=== PATIENT | male | born 1960 | race African-American/Black ===

== ENCOUNTER 2016-08-29 20:12 | Emergency (ER) | payer BC ==
[2016-08-29 20:25] VITALS: BP 146/76; PULSE 79; TEMP 98.1; BMI 26.8
--- NOTE | 2016-08-29 21:27 | PDOC ---
History of Present Illness - General History Source: Patient, Old Records Exam Limitations: No Limitations - History of Present Illness Initial Comments: 08/29/16 21:45 CHIEF COMPLAINT: Wound over the right great toe HISTORY OF PRESENT ILLNESS: The patient is a 56 year old male, with a significant past medical history of diabetes (on Metformin), who presents to the emergency department with a wound over the right great toe for the past 2 days. Two days ago, the patient reports that he wore a new pair of shoes for the first time and noticed an abrasion over the right great toe after taking his sock and shoe off at the end of the day. The patient reports that his partner helped him clean and dress the wound. The patient denies any redness around the wound but does report some drainage, prompting him to the come to the ED for further evaluation. The patient denies fever or chills. The patient reports that his sugars have been around 250 but reports that he has been compliant with his Metformin. PCP: Dr. Tylor Hanh ([facility]) REVIEW OF SYSTEMS: CONSTITUTIONAL: Absent: fever, chills, diaphoresis, generalized weakness, malaise, loss of appetite HEENT: Absent: rhinorrhea, nasal congestion, throat pain, throat swelling, difficulty swallowing, mouth swelling, ear pain, eye pain, visual Changes CARDIOVASCULAR: Absent: chest pain, syncope, palpitations, irregular heart rate, lightheadedness , peripheral edema RESPIRATORY: Absent: cough, shortness of breath, dyspnea with exertion, orthopnea, wheezing, stridor, hemoptysis GASTROINTESTINAL: Absent: abdominal pain, abdominal distension, nausea, vomiting, diarrhea, constipation, melena, hematochezia GENITOURINARY: Absent: dysuria, frequency, urgency, hesitancy, hematuria, flank pain, genital pain MUSCULOSKELETAL: Absent: myalgia, arthralgia, joint swelling SKIN: Present: +Wound over the right great toe with drainage Absent: rash, itching, pallor HEMATOLOGIC/IMMUNOLOGIC: Absent: easy bleeding, easy bruising, lymphadenopathy, frequent infections ENDOCRINE: Absent: unexplained weight gain, unexplained weight loss, heat intolerance, cold intolerance NEUROLOGIC: Absent: headache, focal weakness or paresthesias, dizziness, unsteady gait, seizure, mental status changes, bladder or bowel incontinence PSYCHIATRIC: Absent: anxiety, depression, suicidal or homicidal ideation, hallucinations. PHYSICAL EXAM: GENERAL: Well developed, well nourished. Awake and alert. No acute distress. HEENT: Normocephalic, atraumatic. PERRLA, EOMI. No conjunctival pallor. Sclera are non-icteric. Moist mucous membranes. Oropharynx is clear. NECK: Supple. Full ROM. No JVD. Carotid pulses 2+ and symmetric, without bruits. No thyromegaly. No lymphadenopathy. CARDIOVASCULAR: Regular rate and rhythm. No murmurs, rubs, or gallops. Distal pulses are 2+ and symmetric. PULMONARY: No evidence of respiratory distress. Lungs clear to auscultation bilaterally. No wheezing, rales or rhonchi. ABDOMINAL: Soft. Non-tender. Non-distended. No rebound or guarding. No organomegaly. Normoactive bowel sounds. MUSCULOSKELETAL: Normal range of motion at all joints. No bony deformities or tenderness. No CVA tenderness. EXTREMITIES: No cyanosis. No clubbing. No edema. No calf tenderness. SKIN: Right great toe, 4 x 3 cm open erosion with some scant purulent drainage. No surrounding erythema or lymphangitic streaking. Warm and dry. Normal capillary refill. No rashes. No jaundice. NEUROLOGICAL: Alert, awake, appropriate. Cranial nerves 2-12 intact. No deficits to light touch and temperature in face, upper extremities and lower extremities. No motor deficits in the in face, upper extremities and lower extremities. Normoreflexic in the upper and lower extremities. Normal speech. Toes are downgoing bilaterally. Gait is normal without ataxia. PSYCHIATRIC: Cooperative. Good eye contact. Appropriate mood and affect. <Cordelia Rolon - Last Filed: 08/29/16 21:51> - General History Source: Patient Exam Limitations: No Limitations - History of Present Illness Initial Comments: 08/29/16 21:27 <Zahira Foss - Last Filed: 08/29/16 23:02> - General Chief Complaint: Wound Stated Complaint: INFECTION Time Seen by Provider: 08/29/16 21:13 Past History <Cordelia Rolon - Last Filed: 08/29/16 21:51> - Past Medical History Diabetes: Yes (niddm) HTN: Yes Suicide Attempt (Hx): No - Psycho/Social/Smoking Cessation Hx Anxiety: No Suicidal Ideation: No Smoking Status: Yes Smoking History: Never smoked Number of Cigarettes Smoked Daily: 0 If you are a former smoker, when did you quit?: 2011 Hx Alcohol Use: No Drug/Substance Use Hx: No Substance Use Type: None <Zahira Foss - Last Filed: 08/29/16 23:02> - Past Medical History Allergies/Adverse Reactions: Allergies Allergy/AdvReac Type Severity Reaction Status Date / Time No Known Allergies Allergy Verified 08/29/16 20:25 Home Medications: Ambulatory Orders Metformin HCl [Glucophage -] 1,000 mg PO BID 04/05/16 Sulfamethoxazole/Trimethoprim [Bactrim Ds -] 1 tab PO BID #14 tablet 08/29/16 *Physical Exam - Vital Signs Last Vital Signs Temp Pulse Resp BP Pulse Ox 98.1 F 79 18 146/76 100 08/29/16 20:23 08/29/16 20:23 08/29/16 20:23 08/29/16 20:23 08/29/16 20:23 <Cordelia Rolon - Last Filed: 08/29/16 21:51> - Vital Signs Last Vital Signs Temp Pulse Resp BP Pulse Ox 98.1 F 79 18 146/76 100 08/29/16 20:23 08/29/16 20:23 08/29/16 20:23 08/29/16 20:23 08/29/16 20:23 <Zahira Foss - Last Filed: 08/29/16 23:02> ED Treatment Course - Medications Given in the ED: ED Medications Discontinued Medications Generic Name Dose Route Start Last Admin Trade Name Freq PRN Reason Stop Dose Admin Trimethoprim/Sulfamethoxazole 1 each 08/29/16 21:37 08/29/16 21:44 Bactrim Ds - PO 08/29/16 21:38 1 each ONCE ONE Administration <Cordelia Rolon - Last Filed: 08/29/16 21:51> Medical Decision Making - Medical Decision Making 08/29/16 22:02 A/P: 56 year old diabetic with right great toe ulcer. Minimal drainage, no surrounding erythema, no systemic symptoms to prompt further workup. FS is: 415- patient states that he knows his A1C is 10 and that he is supposed to start Lantus next week. Wound culture sent; will start on Bactrim. Will obtain xray to screen for osteomyelitis, although wound is relatively new and this seems unlikely. Will place wet-to-dry dressing and refer to podiatry. Patient is reliable and states that he will call tomorrow for an appointment. 08/29/16 22:34 No xray evidence of osteomyelitis. <Zahira Foss - Last Filed: 08/29/16 23:02> *DC/Admit/Observation/Transfer - Attestations Scribe Attestion: 08/29/16 21:46 Documentation prepared by Cordelia Rolon, acting as medical equipment repair technician for Emergency Dept,Physician, /. <Cordelia Rolon - Last Filed: 08/29/16 21:51> - Discharge Dispostion Admit: No <Zahira Foss - Last Filed: 08/29/16 23:02> Diagnosis at time of Disposition: Diabetic foot ulcer Qualifiers: Diabetic foot ulcer location: toe Diabetes mellitus type: type 2 Laterality: right Non-pressure ulcer stage: with fat layer exposed Qualified Code(s): E11.621 - Type 2 diabetes mellitus with foot ulcer - Prescriptions Prescriptions: Sulfamethoxazole/Trimethoprim [Bactrim Ds -] 1 tab PO BID #14 tablet - Referrals Referrals: Wayne Villatoro MD [Staff Physician] - Prudencio Guardado MD [Staff Physician] - - Patient Instructions Printed Discharge Instructions: DI for Diabetic Foot Ulcer Additional Instructions: -Do wet-to-dry dressings as instructed -Keep pressure off of your foot as much as possible -Avoid tight-fitting socks and shoes -Take antibiotics as prescribed until you can follow up with podiatry (referral enclosed-please call for an appointment tomorrow and state that you were referred from the ER) -Control your blood sugar as well as you can. It is not well-controlled today and you need to follow up with your primary care doctor to see if you may need an adjustment in your regimen. -Inspect your feet daily for signs of worsening infection: redness around the site, increase in drainage, foul-smelling drainage -Return here for fevers/chills or any of the above signs - Post Discharge Activity Work/School Note: Back to Work, Parent(s) Back to Work Note
[2016-08-29] MEDS ORDERED: SULFAMETHOXAZOLE/TRIMETHOPRIM 800MG/160MG D.S. TABLET PO ONE (21:37)
[2016-08-29] MEDS ORDERED: SULFAMETHOXAZOLE/TRIMETHOPRIM 800MG/160MG D.S. TABLET ONE (21:43)
[2016-08-29] MEDS ORDERED: INSULIN REGULAR HUMAN 100 UNITS/ML *VIAL SQ ONE (22:49)
--- NOTE | 2016-09-01 13:55 | PDOC ---
Patient Follow-up (Call Back) - Post ED Follow - Up Chief Complaint: Pain Condition at time of discharge: Improved Disposition at time of original discharge: HOME - Disposition Referral:: Non Staff, Medical Rx Needed: Yes (prescription changed to levaquin ) Additional Instructions/Notes: wound not improving as per patient. wound culture ESBL ecoli resistant to bactrim. changed to levaquin daily x 7 days prompt follow up and wound check discussed with patient.
== END 2016-08-29 23:06 | disposition home or self-care (01) ==
LOC: JERFT 20:12
DX: E11.621 Type 2 diabetes mellitus with foot ulcer (principal); L97.512 Non-pressure chronic ulcer of other part of right foot with fat layer exposed; Z79.84 Long term (current) use of oral hypoglycemic drugs; I10 Essential (primary) hypertension
CPT/HCPCS: 73630-TC-RT; 87070; 87186; 87205; 99281-25

== ENCOUNTER 2016-09-28 11:25 | Inpatient (IN) | payer BC ==
--- NOTE | 2016-09-28 14:34 | PDOC ---
*Physical Exam - Vital Signs Last Vital Signs Temp Pulse Resp BP Pulse Ox 98.5 F 82 18 106/61 95 09/28/16 11:47 09/28/16 11:47 09/28/16 11:47 09/28/16 11:47 09/28/16 11:47 - Physical Exam Comments: 09/28/16 14:34 Pt seen by the Advanced Practice Provider under my direct supervision Pt interviewed and examined Ancillary studies reviewed I agree with plan as outlined by the Advanced Practice Provider ED Treatment Course - LABORATORY CBC & Chemistry Diagram: 10/04/16 07:30 10/04/16 07:30 *DC/Admit/Observation/Transfer Diagnosis at time of Disposition: Foot ulcer due to secondary DM, Gas gangrene
--- NOTE | 2016-09-28 16:42 | PDOC ---
History of Present Illness - General Chief Complaint: Weakness Stated Complaint: PRESSURE PROBLEM Time Seen by Provider: 09/28/16 14:31 History Source: Patient Exam Limitations: No Limitations - History of Present Illness Initial Comments: 09/28/16 14:20 56-year-old male presents to the ED with complaints of generalized fatigue weakness, and feeling as if his sugar may be high. Patient denies fever, chills , headache, dizziness, chest pain, shortness of breath, abdominal pain, nausea, or lower extremity edema. Patient states that was placed on insulin yesterday due to an elevated A1c despite being on oral medication. Patient denies any other recent change in medication but does state receive wound care for at the wound care clinic secondary to an open wound to the right first toe that he is under the care of Dr. Holland for. Timing/Duration: 4-6 hours, constant Severity: mild Associated Symptoms: reports: malaise, weakness Past History - Travel Traveled outside of the country in the last 30 days: No - Past Medical History Allergies/Adverse Reactions: Allergies Allergy/AdvReac Type Severity Reaction Status Date / Time No Known Allergies Allergy Verified 09/28/16 11:47 Home Medications: Ambulatory Orders Metformin HCl [Glucophage -] 1,000 mg PO BID 04/05/16 Aspirin [ASA -] 81 mg PO DAILY 09/28/16 Diabetes: Yes HTN: Yes Suicide Attempt (Hx): No - Psycho/Social/Smoking Cessation Hx Anxiety: No Suicidal Ideation: No Smoking Status: Yes Smoking History: Never smoked Number of Cigarettes Smoked Daily: 0 If you are a former smoker, when did you quit?: 2011 Hx Alcohol Use: No Drug/Substance Use Hx: No Substance Use Type: None Patient Lives Alone: No Lives with/in: spouse/SO Review of Systems - Review of Systems Able to Perform ROS?: Yes Constitutional: Yes: Weakness HEENTM: No: Symptoms Reported Respiratory: No: Symptoms reported Cardiac (ROS): No: Symptoms Reported ABD/GI: No: Symptoms Reported : No: Symptoms Reported Musculoskeletal: No: Symptoms Reported Neurological: Yes: Weakness Endocrine: No: Increased Hunger, Increased Thirst, Increased Urine Hematologic/Lymphatic: No: Symptoms Reported *Physical Exam - Vital Signs Last Vital Signs Temp Pulse Resp BP Pulse Ox 98.5 F 82 18 106/61 95 09/28/16 11:47 09/28/16 11:47 09/28/16 11:47 09/28/16 11:47 09/28/16 11:47 - Physical Exam General Appearance: Yes: Nourished, Appropriately Dressed. No: Apparent Distress HEENT: positive: EOMI, DANIEL. negative: Pale Conjunctivae Neck: positive: Normal Thyroid, Supple Respiratory/Chest: positive: Lungs Clear, Normal Breath Sounds. negative: Respiratory Distress, Accessory Muscle Use Cardiovascular: positive: Regular Rhythm, Regular Rate. negative: Murmur Gastrointestinal/Abdominal: positive: Soft. negative: Tenderness Musculoskeletal: negative: CVA Tenderness Extremity: positive: Normal Capillary Refill. negative: Pedal Edema Integumentary: positive: Normal Color, Warm, Moist Neurologic: positive: Motor Strength 5/5 ( ambulatory) Heart Score/ECG Review - History History: Slightly suspicious - Electrocardiogram EKG: Normal - Age Age: 45-65 - Risk Factors Risk Factors Heart Score: Yes Hx Diabetes Based on the list above the patient has:: 1-2 risk factors - ECG Intrepretation Rhythm: Regular Rhythm (normal sinus rhythm at 74. left atrial enlargement) ED Treatment Course - LABORATORY CBC & Chemistry Diagram: 10/03/16 05:35 09/30/16 06:00 - ADDITIONAL ORDERS Additional order review: Laboratory Results 09/28/16 16:01 POC Glucometer [id number] 09/28/16 16:01 POC Glucometer [id number] - RADIOLOGY Radiology Studies Ordered: Category Date Time Status CHEST X-RAY PORTABLE* [RAD] Stat Radiology 09/28/16 15:06 Taken Medical Decision Making - Medical Decision Making 09/28/16 16:47 Patient here for complaints of generalized weakness and fatigue feeling as if her sugar is high. Patient also mentions that he thought his blood pressure may be high and not sure why he is found this way. Patient also disclosed that he just started insulin yesterday secondary to elevated A1c. Patient ordered for labs including lactic acid, acetone, EKG. 09/28/16 16:48 Laboratory Tests 09/28/16 16:01 POC Glucometer [id number] 09/28/16 17:51 Chest x-ray shows no acute findings. Patient ordered for 1 L of normal saline. Laboratory Tests 06/06/13 04/05/16 09/28/16 14:25 09:50 16:30 WBC 10.3 H 7.8 16.1 H D Hgb 12.2 D Hct 36.2 Plt Count 437 H D Neutrophils % 64.7 Monocytes % 13.1 H Sodium Potassium Chloride Carbon Dioxide Anion Gap BUN Creatinine Creat Clearance w eGFR Lactic Acid Calcium Total Bilirubin AST ALT Albumin 09/28/16 09/28/16 16:30 16:30 WBC Hgb Hct Plt Count Neutrophils % Monocytes % Sodium 133 L Potassium 4.5 Chloride 95 L Carbon Dioxide 27 Anion Gap 11 BUN 19 H D Creatinine 1.3 D Creat Clearance w eGFR 57.53 Lactic Acid 1.124 Calcium 9.0 Total Bilirubin 0.4 AST 21 D ALT 25 Albumin 2.6 L D urine pending 09/28/16 17:52 Patient unable to be located in the room in the ER or in local areas. Wound care physician doctor renee came down here since patient missed his hyperbaric appointment today and came down to see a patient was still going to be able to make it later on today. patient ordered for right toe/foot x-ray. 10/03/16 11:37 *DC/Admit/Observation/Transfer Diagnosis at time of Disposition: Foot ulcer due to secondary DM, Gas gangrene
[2016-09-28 17:29] LABS: BASOPHIL 0.6 % (0-2.0); EOSINOPHIL 2.1 % (0-4.5); MCH 30.3 pg (25.7-33.7); MCHC 33.7 g/dl (32.0-35.9); MEAN CELL VOLUME 89.8 fl (80-96); MEAN PLT VOLUME 7.5 fl (7.5-11.1); NEUTROPHILS 64.7 % (42.8-82.8); PLATELET COUNT 437 K/MM3 (134-434); RDW 12.7 % (11.9-15.9); WHITE BLOOD COUNT 16.1 K/mm3 (4.0-10.0)
[2016-09-28 17:34] LABS: ALBUMIN 2.6 g/dl (3.4-5.0); ALK PHOS 98 U/L (45-117); ANION GAP 11 (8-16); BILIRUBIN,TOTAL 0.4 mg/dL (0.2-1.0); CO2 27 mmol/L (21-32); COCKROFT - GAULT 77.93; CREATININE 1.3 mg/dL (0.7-1.3); GLUCOSE,RANDOM 216 mg/dL (74-106); SGOT/AST 21 U/L (15-37); SGPT/ALT 25 U/L (12-78); TOT PROT 7.5 g/dl (6.4-8.2)
[2016-09-28] MEDS ORDERED: SODIUM CHLORIDE 1,000 ML IV STA (17:50)
[2016-09-28 18:15] LABS: URINE APPEARANCE CLOUDY; URINE BILIRUBIN NEGATIVE (NEGATIVE); URINE COLOR AMBER; URINE GLUCOSE (UA) 3+ (NEGATIVE); URINE KETONE NEGATIVE (NEGATIVE); URINE LEUK ESTERASE NEGATIVE (NEGATIVE); URINE NITRITE NEGATIVE (NEGATIVE); URINE UROBILINOGEN NEGATIVE E.U./dl (0.2-1.0)
[2016-09-28 19:42] LABS: URINE BLOOD 1+ (NEGATIVE); URINE PROTEIN 3+ (NEGATIVE)
--- NOTE | 2016-09-28 20:08 | PDOC ---
*Physical Exam - Vital Signs Last Vital Signs Temp Pulse Resp BP Pulse Ox 98.5 F 90 18 112/60 95 09/28/16 11:47 09/28/16 15:02 09/28/16 11:47 09/28/16 15:02 09/28/16 11:47 - Physical Exam Comments: 09/28/16 20:07 Sign-out received from outgoing ER provider Cornell. Pt interviewed and examined. Ancillary studies reviewed. WBC 16.1 Awaiting UA, Utox, foot x-ray. R foot exam positive for malodorous, necrotic, draining tissue to great toe and third toe. Right foot positive for warmth and 2+ pitting edema. 09/29/16 00:07 Foot x-ray: Trabecular irregularities at base of distal tuft of distal phalanx great toe as well as irregular elongated contour of lateral osteophytes of distal interphalangeal joint on at least one view, suspicious for acute fracture (s). Additional questionable acute fracture distal diaphysis of proximal phalanx great toe. Evaluation limited by overlying bandage material and emphysema in overlying soft tissues. Bipartite medial sesamoid incidentally noted. Read by: Polina Reed M.D. Will admit to hospitalist for cellulitis and gas gangrene of right toe. Discussed case with hospitalist JUN Be who accepts patient to inpatient admission. ED Treatment Course - LABORATORY CBC & Chemistry Diagram: 09/28/16 16:30 09/28/16 16:30 - ADDITIONAL ORDERS Additional order review: Laboratory Results 09/28/16 09/28/16 09/28/16 16:45 16:30 16:30 Sodium 133 L Potassium 4.5 Chloride 95 L Carbon Dioxide 27 Anion Gap 11 BUN 19 H D Creatinine 1.3 D Creat Clearance w eGFR 57.53 POC Glucometer Random Glucose 216 H D Lactic Acid 1.124 Calcium 9.0 Total Bilirubin 0.4 AST 21 D ALT 25 Alkaline Phosphatase 98 D Total Protein 7.5 Albumin 2.6 L D Urine Color Juliana Urine Appearance Cloudy Urine pH 5.0 Urine Protein 3+ H Urine Glucose (UA) 3+ H Urine Ketones Negative Urine Blood 1+ H Urine Nitrite Negative Urine Bilirubin Negative Urine Urobilinogen Negative Ur Leukocyte Esterase Negative 09/28/16 16:01 Sodium Potassium Chloride Carbon Dioxide Anion Gap BUN Creatinine Creat Clearance w eGFR POC Glucometer [id number] Random Glucose Lactic Acid Calcium Total Bilirubin AST ALT Alkaline Phosphatase Total Protein Albumin Urine Color Urine Appearance Urine pH Urine Protein Urine Glucose (UA) Urine Ketones Urine Blood Urine Nitrite Urine Bilirubin Urine Urobilinogen Ur Leukocyte Esterase 09/28/16 09/28/16 16:30 16:01 RBC 4.03 MCV 89.8 MCHC 33.7 RDW 12.7 MPV 7.5 Neutrophils % 64.7 Lymphocytes % 19.5 D Monocytes % 13.1 H Eosinophils % 2.1 Basophils % 0.6 POC Glucometer [id number] - Medications Given in the ED: ED Medications Discontinued Medications Generic Name Dose Route Start Last Admin Trade Name Freq PRN Reason Stop Dose Admin Sodium Chloride 1,000 mls @ 1,000 mls/hr 09/28/16 17:50 09/28/16 17:56 Normal Saline - IV 09/28/16 18:49 1,000 mls/hr ASDIR STA Administration *DC/Admit/Observation/Transfer Diagnosis at time of Disposition: Foot ulcer due to secondary DM, Gas gangrene - Discharge Dispostion Admit: Yes
[2016-09-28 20:10] LABS: URINE MARIJUANA THC NEGATIVE ng/ml (CUTOFF=50)
[2016-09-28] MEDS ORDERED: CLINDAMYCIN 600MG PREMIX IVPB 50 ML IVPB ONE ×2 (22:06→22:27)
[2016-09-28] MEDS ORDERED: PIPERACILLIN/TAZOB 3.375 GM/50 ML PRE-DOCKED IV ONE (22:06)
[2016-09-28] MEDS ORDERED: VANCOMYCIN 1 GRAM (PRE-DOCKED) 1,000 MG/250 ML BAG IVPB ONE (22:07)
[2016-09-28 22:53] LABS: URINE RBC 14 /hpf (0-3); URINE WBC 5 /hpf (3-5)
[2016-09-28 22:54] LABS: URINE HYALINE CAST 4 /lpf; URINE MUCUS MANY
[2016-09-28] MEDS ORDERED: PIPERACILLIN/TAZOB 3.375 GM 50 ML IVPB ONE (23:16)
[2016-09-29] MEDS ORDERED: VANCOMYCIN 1 GRAM (PRE-DOCKED) 250 ML IVPB ONE (01:10)
[2016-09-29] MEDS ORDERED: DEXTROSE 5%-0.45% SALINE 1,000 ML IV SCH (01:30)
--- NOTE | 2016-09-29 01:37 | HP ---
CHIEF COMPLAINT: Generalized weakness PCP: Doctor not on staff Vascular: Dr. Holland HISTORY OF PRESENT ILLNESS: This is a 56 y/o male with a past medical history of Diabetes Mellitus, Diabetic Ulcers ( wound center-Hyperbaric therapy). Who presents to the ED with weakness and generalized fatigue. Patient reports having subjective fevers and chills for a week. Patient reports recent completion of ABX for an infection to his R-great toe. Patient reports continued foul smelling discharge from his R- great toe. Patient denies cough, SOB, CP, AP, N/V/D, constipation, or dysuria. ER course was notable for: (1) WBC 16.1 (2) Xray report: Trabecular irregularities at base of distal tuft of distal phalanx great toe as well as irregular elongated contour of lateral osteophytes of distal interphalangeal joint. suspicious for acute fracture(s). ?acute fracture distal diaphysis of proximal phalanx great toe. Emphysema in overlying soft tissues. (3) Glucose 216 Recent Travel: None PAST MEDICAL HISTORY: See HPI PAST SURGICAL HISTORY: Denies Social History: Smoking: Never Alcohol: None Drugs: None Lives with S.O. and children Family History: Father: Diabetes, Mother: Diabetes Allergies No Known Allergies Allergy (Verified 09/28/16 11:47) HOME MEDICATIONS: Home Medications Medication Instructions Recorded Metformin HCl [Glucophage -] 1,000 mg PO BID 04/05/16 Aspirin [ASA -] 81 mg PO DAILY 09/28/16 REVIEW OF SYSTEMS CONSTITUTIONAL: fever, chills, generalized weakness Absent: diaphoresis, malaise, loss of appetite, weight change HEENT: Absent: rhinorrhea, nasal congestion, throat pain, throat swelling, difficulty swallowing, mouth swelling, ear pain, eye pain, visual changes CARDIOVASCULAR: Absent: chest pain, syncope, palpitations, irregular heart rate, lightheadedness , peripheral edema RESPIRATORY: Absent: cough, shortness of breath, dyspnea with exertion, orthopnea, wheezing, stridor, hemoptysis GASTROINTESTINAL: Absent: abdominal pain, abdominal distension, nausea, vomiting, diarrhea, constipation, melena, hematochezia GENITOURINARY: Absent: dysuria, frequency, urgency, hesitancy, hematuria, flank pain, genital pain MUSCULOSKELETAL: Absent: myalgia, arthralgia, joint swelling, back pain, neck pain SKIN: diabetic wounds to right great with foul smelling discharge, right 3rd and 4th digit wounds Absent: rash, itching, pallor HEMATOLOGIC/IMMUNOLOGIC: Absent: easy bleeding, easy bruising, lymphadenopathy, frequent infections ENDOCRINE: Absent: unexplained weight gain, unexplained weight loss, heat intolerance, cold intolerance NEUROLOGIC: Absent: headache, focal weakness or paresthesias, dizziness, unsteady gait, seizure, mental status changes, bladder or bowel incontinence PSYCHIATRIC: Absent: anxiety, depression, suicidal or homicidal ideation, hallucinations. PHYSICAL EXAMINATION GENERAL: Awake, alert, and fully oriented, in no acute distress. HEAD: Normal with no signs of trauma. EYES: Pupils equal, round and reactive to light, extraocular movements intact, sclera anicteric, conjunctiva clear. No lid lag. EARS, NOSE, THROAT: Ears normal, nares patent, oropharynx clear without exudates. Moist mucous membranes. NECK: Normal range of motion, supple without lymphadenopathy, JVD, or masses. LUNGS: Breath sounds equal, clear to auscultation bilaterally. No wheezes, and no crackles. No accessory muscle use. HEART: Regular rate and rhythm, normal S1 and S2 without murmur, rub or gallop. ABDOMEN: Soft, nontender, not distended, normoactive bowel sounds, no guarding, no rebound, no masses. No hepatomegaly or splenomegaly. MUSCULOSKELETAL: Normal range of motion at all joints. No bony deformities or tenderness. No CVA tenderness. UPPER EXTREMITIES: 2+ pulses, warm, well-perfused. No cyanosis. No clubbing. No peripheral edema. LOWER EXTREMITIES: 2+ pulses, warm, well-perfused. No calf tenderness. No peripheral edema. NEUROLOGICAL: Cranial nerves II-XII intact. Normal speech. Gait not observed. PSYCHIATRIC: Cooperative. Good eye contact. Appropriate mood and affect. SKIN: 3 vascular ulcers, #1 R-great toe 4cm x3.5cm, irregular borders, macerated , erythematous, with necrosis, malodorous scant drainage. #2 R- 3rd digit 3cm x2cm, erythema, malodorous, scant drainage. #3 4th digit pea size ulcer, erythema, scant drainage noted, Warm, dry, normal turgor, no rashes. Normal capillary refill. Laboratory Results - last 24 hr 09/28/16 09/28/16 09/28/16 16:01 16:30 16:30 WBC 16.1 H D RBC 4.03 Hgb 12.2 D Hct 36.2 MCV 89.8 MCHC 33.7 RDW 12.7 Plt Count 437 H D MPV 7.5 Neutrophils % 64.7 Lymphocytes % 19.5 D Monocytes % 13.1 H Eosinophils % 2.1 Basophils % 0.6 Sodium 133 L Potassium 4.5 Chloride 95 L Carbon Dioxide 27 Anion Gap 11 BUN 19 H D Creatinine 1.3 D Creat Clearance w eGFR 57.53 POC Glucometer [id number] Random Glucose 216 H D Lactic Acid Calcium 9.0 Total Bilirubin 0.4 AST 21 D ALT 25 Alkaline Phosphatase 98 D Total Protein 7.5 Albumin 2.6 L D Urine Color Urine Appearance Urine pH Ur Specific [place] Urine Protein Urine Glucose (UA) Urine Ketones Urine Blood Urine Nitrite Urine Bilirubin Urine Urobilinogen Ur Leukocyte Esterase Urine RBC Urine WBC Ur Epithelial Cells Hyaline Casts Urine Mucus Opiates Screen Methadone Screen Barbiturate Screen Phencyclidine Screen Ur Amphetamines Screen MDMA (Ecstasy) Screen Benzodiazepines Screen Cocaine Screen U Marijuana (THC) Screen Acetone, Qual Negative 09/28/16 09/28/16 09/28/16 16:30 16:30 16:45 WBC RBC Hgb Hct MCV MCHC RDW Plt Count MPV Neutrophils % Lymphocytes % Monocytes % Eosinophils % Basophils % Sodium Potassium Chloride Carbon Dioxide Anion Gap BUN Creatinine Creat Clearance w eGFR POC Glucometer Random Glucose Lactic Acid 1.124 Calcium Total Bilirubin AST ALT Alkaline Phosphatase Total Protein Albumin Urine Color [place] Urine Appearance Cloudy Urine pH 5.0 Ur Specific [place] >= 1.030 H Urine Protein 3+ H Urine Glucose (UA) 3+ H Urine Ketones Negative Urine Blood 1+ H Urine Nitrite Negative Urine Bilirubin Negative Urine Urobilinogen Negative Ur Leukocyte Esterase Negative Urine RBC 14 Urine WBC 5 Ur Epithelial Cells Moderate Hyaline Casts 4 Urine Mucus Many Opiates Screen Negative Methadone Screen Negative Barbiturate Screen Negative Phencyclidine Screen Negative Ur Amphetamines Screen Negative MDMA (Ecstasy) Screen Negative Benzodiazepines Screen Negative Cocaine Screen Negative U Marijuana (THC) Screen Negative Acetone, Qual XRAY Reports: 09/29/16 00:07 Foot x-ray: Trabecular irregularities at base of distal tuft of distal phalanx great toe as well as irregular elongated contour of lateral osteophytes of distal interphalangeal joint on at least one view, suspicious for acute fracture (s). Additional questionable acute fracture distal diaphysis of proximal phalanx great toe. Evaluation limited by overlying bandage material and emphysema in overlying soft tissues. Bipartite medial sesamoid incidentally noted. Read by: Polina Reed M.D. ASSESSMENT/PLAN: This is a 56 y/o male with a PMHx: Diabetes, Diabetic Wounds (wound center, Hyperbaric treatments). Admitted with Diabetic Ulcers, Cellulitis, Failed Out Patient Therapy for further evaluation of their emergent condition. 1. ID: Diabetic Wounds to R- Foot - Failed Out Patient Therapy - Requires for IV ABX - Wound Culture-pending - R- foot Xray- see above - Clindamycin,Zosyn, Vancomycin given in ED - Will continue Vanco, Zosyn - Appreciate Vascular consult for possible debridement - Appreciate ID Consult - Monitor CBC, Vitals - Wound care Nurse 2. Endo: Diabetes Mellitus - Not Controlled - BGMs - ISS - HgbA1C in am 3. FEN - Tolerates PO fluids - Replete lytes prn - NPO until seen by Vascular, then Diabetic Diet 4. 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 - GAS GANGRENE (2) Diabetic foot ulcer Code(s): E11.621 - TYPE 2 DIABETES MELLITUS WITH FOOT ULCER L97.509 - NON-PRESSURE CHRONIC ULCER OTH PRT UNSP FOOT W UNSP SEVERITY (3) Noncompliance with diabetes treatment Code(s): Z91.19 - PATIENT'S NONCOMPLIANCE W OTH MEDICAL TREATMENT AND REGIMEN (4) Uncontrolled diabetes mellitus Code(s): E11.65 - TYPE 2 DIABETES MELLITUS WITH HYPERGLYCEMIA (5) DVT prophylaxis Code(s): NZV3076 - Visit type - Emergency Visit Emergency Visit: Yes ED Registration Date: 09/28/16 Care time: The patient presented to the Emergency Department on the above date and was hospitalized for further evaluation of their emergent condition. - New Patient This patient is new to me today: Yes Date on this admission: 09/29/16 - Critical Care Critical Care patient: No
[2016-09-29 02:50] LABS: ACETONE SERUM NEGATIVE (NEGATIVE)
[2016-09-29 03:04] VITALS: BMI 25.7
[2016-09-29] MEDS: SODIUM CHLORIDE 1,000 ML IV SCH ×2 (05:38→06:59)
[2016-09-29] MEDS: HEPARIN NA (PORCINE) 5,000 UNITS/ML 1ML VIAL SQ SCH ×3 (05:49→22:26)
[2016-09-29] MEDS ORDERED: PIPERACILLIN/TAZOB 3.375 GM/50 ML PRE-DOCKED IVPB ONE (07:00)
[2016-09-29 07:13] LABS: BASOPHIL 0.5 % (0-2.0); EOSINOPHIL 2.9 % (0-4.5); MCHC 34.8 g/dl (32.0-35.9); MEAN CELL VOLUME 89.2 fl (80-96); MEAN PLT VOLUME 7.3 fl (7.5-11.1); NEUTROPHILS 64.1 % (42.8-82.8); PLATELET COUNT 413 K/MM3 (134-434); RDW 12.8 % (11.9-15.9); WHITE BLOOD COUNT 13.5 K/mm3 (4.0-10.0)
[2016-09-29 07:38] LABS: CALCIUM 9.1 mg/dL (8.5-10.1)
[2016-09-29 07:40] LABS: COCKROFT - GAULT 114.39; CREATININE 0.9 mg/dL (0.7-1.3)
[2016-09-29] MEDS ORDERED: INSULIN (NOVOLOG) ASPART 100 UNITS/ML 10ML VIAL SQ ONE (09:00)
[2016-09-29] MEDS ORDERED: ERTAPENEM SODIUM 1 GM/50 ML PRE-DOCKED IVPB SCH (10:00)
[2016-09-29] MEDS ORDERED: PIPERACILLIN/TAZOB 3.375 GM/50 ML PRE-DOCKED IVPB SCH (10:00)
[2016-09-29] MEDS ORDERED: ERTAPENEM SODIUM 1 GM in SODIUM CHLORIDE 50 ML IVPB SCH (10:45)
[2016-09-29] MEDS: INSULIN SLIDING SCALE (NOVOLOG) 1 VIAL SQ SCH ×3 (10:59→16:28)
--- NOTE | 2016-09-29 11:38 | CONSULT ---
Consult Consult Specialty:: infectious diseases Reason for Consultation:: wound infection rt foot - History of Present Illness Chief Complaint: swelling and pain in rt foot History of Present Illness: 56 y/o male with a past medical history of Diabetes Mellitus, Diabetic Ulcers ( wound center-Hyperbaric therapy). Who presents to the ED with weakness and generalized fatigue. Patient reports having subjective fevers and chills for a week. Patient reports recent completion of ABX for an infection to his R-great toe. Patient reports continued foul smelling discharge from his R- great toe. Patient denies cough, SOB, CP, AP, N/V/D, constipation, or dysuria. he also mentions that he has change in color and change of skin texture of the 2nd and 3rd toe patient denies any fevers but has noticed color change of the wound - History Source History Provided By: Patient Limitations to Obtaining History: No Limitations - Alcohol/Substance Use Hx Alcohol Use: No - Smoking History Smoking history: Never smoked Aproximately how many cigarettes per day: 0 If you are a former smoker, when did you quit?: 2012 Home Medications - Allergies Allergies/Adverse Reactions: Allergies Allergy/AdvReac Type Severity Reaction Status Date / Time No Known Allergies Allergy Verified 09/28/16 11:47 - Home Medications Home Medications: Ambulatory Orders Metformin HCl [Glucophage -] 1,000 mg PO BID 04/05/16 Aspirin [ASA -] 81 mg PO DAILY 09/28/16 Review of Systems - Review of Systems Constitutional: reports: No Symptoms Eyes: reports: No Symptoms HENT: reports: No Symptoms Neck: reports: No Symptoms Cardiovascular: reports: No Symptoms Respiratory: reports: No Symptoms Gastrointestinal: reports: No Symptoms Genitourinary: reports: No Symptoms Musculoskeletal: reports: Muscle Pain, Other Integumentary: reports: Erythema, Wound, Other (black color) Neurological: reports: No Symptoms Endocrine: reports: No Symptoms Hematology/Lymphatic: reports: No Symptoms Psychiatric: reports: No Symptoms Physical Exam Vital Signs: Vital Signs Temperature 97.7 F 09/29/16 06:16 Pulse Rate 76 09/29/16 06:16 Respiratory Rate 20 09/29/16 06:16 Blood Pressure 136/71 09/29/16 06:16 O2 Sat by Pulse Oximetry (%) 98 09/29/16 03:11 Constitutional: Yes: Well Nourished, No Distress, Calm Eyes: Yes: Conjunctiva Clear HENT: Yes: Atraumatic Neck: Yes: Supple, Trachea Midline Cardiovascular: Yes: Regular Rate and Rhythm Respiratory: Yes: Regular, CTA Bilaterally Gastrointestinal: Yes: Normal Bowel Sounds, Soft Musculoskeletal: Yes: Other Extremities: Yes: Other Wound/Incision: Yes: Dressing Dry and Intact, Other (patient has wound on his first toe of the rt foot with foul smell he also has gangrenous changes in his foot which are including the first 3 toes of the foot foul smell present) Neurological: Yes: Alert, Oriented Psychiatric: Yes: Alert, Oriented Labs: CBC, BMP 09/29/16 05:35 09/29/16 05:35 Imaging - Results Chest X-ray: Report Reviewed, Image Reviewed X-ray: Report Reviewed, Image Reviewed Assessment/Plan Problem List - Problem (1) r/o Gas gangrene Code(s): A48.0 - GAS GANGRENE (2) Diabetic foot ulcer Code(s): E11.621 - TYPE 2 DIABETES MELLITUS WITH FOOT ULCER L97.509 - NON-PRESSURE CHRONIC ULCER OTH PRT UNSP FOOT W UNSP SEVERITY (3) Noncompliance with diabetes treatment Code(s): Z91.19 - PATIENT'S NONCOMPLIANCE W OTH MEDICAL TREATMENT AND REGIMEN (4) Uncontrolled diabetes mellitus Code(s): E11.65 - TYPE 2 DIABETES MELLITUS WITH HYPERGLYCEMIA (5)gangrene of the foot plan patients previous cx result noted will start patient on vanco clinda and ertapena will neeed vascular to see soon patient probably needs amputation i doubt the tissues are salvagable
[2016-09-29] MEDS ORDERED: VANCOMYCIN 1,000 MG in DEXTROSE 5%-WATER - 250 ML IVPB SCH (13:00)
--- NOTE | 2016-09-29 13:18 | PN ---
Physical Exam: SUBJECTIVE: Patient seen and examined at bedside. OBJECTIVE: Vital Signs Period Temp Pulse Resp BP Sys/[place] Pulse Ox Last 24 Hr 97.7 F-98.6 F 70-80 20-20 107-144/71-83 98-98 GENERAL: The patient is awake, alert, and fully oriented, in no acute distress. HEAD: Normal with no signs of trauma. EYES: PERRL, extraocular movements intact, sclera anicteric, conjunctiva clear. No ptosis. LUNGS: Breath sounds equal, clear to auscultation bilaterally, no wheezes, no crackles, no accessory muscle use. HEART: Regular rate and rhythm, S1, S2 without murmur, rub or gallop. ABDOMEN: Soft, nontender, nondistended, normoactive bowel sounds, no guarding, no rebound, no hepatosplenomegaly, no masses. UPPER EXTREMITIES: 2+ pulses, warm, well-perfused, no edema LOWER EXTREMITIES: RLE swelling; (1) right great toe, 4 x 3.5cm, with necrosis, malodorous drainage; (2) right third toe, 3cm x 2cm with drainage NEUROLOGICAL: Cranial nerves II through XII grossly intact. Normal speech, gait not observed. Laboratory Results - last 24 hr 09/29/16 09/29/16 09/29/16 05:23 05:35 05:35 WBC 13.5 H RBC 3.95 L Hgb 12.3 Hct 35.2 L MCV 89.2 MCHC 34.8 RDW 12.8 Plt Count 413 MPV 7.3 L Neutrophils % 64.1 Lymphocytes % 20.2 Monocytes % 12.3 H Eosinophils % 2.9 Basophils % 0.5 Sodium 136 Potassium 4.4 Chloride 96 L Carbon Dioxide 28 Anion Gap 12 BUN 17 Creatinine 0.9 D POC Glucometer 319 Random Glucose 293 H D Hemoglobin A1c % Calcium 9.1 09/29/16 09/29/16 05:35 10:56 WBC RBC Hgb Hct MCV MCHC RDW Plt Count MPV Neutrophils % Lymphocytes % Monocytes % Eosinophils % Basophils % Sodium Potassium Chloride Carbon Dioxide Anion Gap BUN Creatinine POC Glucometer 257 Random Glucose Hemoglobin A1c % 12.2 H D Calcium Active Medications Generic Name Dose Route Start Last Admin Trade Name Freq PRN Reason Stop Dose Admin Heparin Sodium (Porcine) 5,000 unit 09/29/16 06:00 09/29/16 05:49 Heparin - SQ 5,000 unit TID CANDACE Administration Sodium Chloride 1,000 mls @ 75 mls/hr 09/29/16 05:30 09/29/16 06:59 Normal Saline - IV 75 mls/hr ASDIR CANDACE Administration Vancomycin HCl 1,250 mg/ 250 mls @ 250 mls/hr 09/30/16 10:00 Dextrose IVPB DAILY [facility] Protocol Piperacillin Sod/Tazobactam 50 mls @ 100 mls/hr 09/29/16 11:45 Sod 3.375 gm/ Dextrose IVPB Q8H-IV [facility] Protocol Clindamycin Phosphate 50 mls @ 100 mls/hr 09/29/16 11:45 Cleocin 600 Mg Premix Ivpb - IVPB Q8H-IV [facility] Insulin Aspart 1 vial 09/29/16 07:00 09/29/16 11:06 Novolog Vial Sliding Scale - SQ Not Given TIDAC [facility] Protocol ASSESSMENT/PLAN 56 year-old male with a PMH of poorly-controlled diabetes and right foot ulcers , admitted for infected right foot ulcers. Infection right foot Diabetic right foot ulcers --EMR reflects history of right foot ulcers dating to 05/2013 --seen in ED 08/29/16 for right great toe ulcer, 4 x 3 cm; wound culture grew (1) E.coli ESBL (2) E.coli (3) Strep B (4) Staph; patient was given script for Bactrim but strains resistant to that medication; xray on 08/29 showed no definite signs of osteo, no subq emphysema --has been followed in the wound clinic, last seen last Sunday --09/28 xray shows swelling, degenerative changes, soft tissue calcification, and soft tissue air --WBC 16.1k on admission, trending down 13.5k; afebrile --start Clinda, ertapenem, and vanco --discussed with Dr. Holland, plan is to amputate right great toe --will get MRI to r/o osteo of third toe which appears to be salvageable at this point; if osteo is seen, will need PICC and long-term antibiotics NIDDM --poor compliance, HgbA1C 12.2% --insulin sliding scale coverage F/E/N Fluids: PO intake adequate Electrolytes: replete as indicated Nutrition: diabetic diet DVT prophylaxis: subq heparin, oob, ambulation Physical therapy evaluation Dispo: spoke with the office of Dr. White, rail gang supervisor; she would like Dr. Holland to perform the surgery. Continues to require inpatient care. Full code. Visit type - Emergency Visit Emergency Visit: Yes ED Registration Date: 09/28/16 Care time: The patient presented to the Emergency Department on the above date and was hospitalized for further evaluation of their emergent condition. - New Patient This patient is new to me today: Yes Date on this admission: 09/29/16 - Critical Care Critical Care patient: No
[2016-09-29] MEDS ORDERED: PIPERACILLIN/TAZOB 3.375 GM 50 ML IVPB SCH (13:45)
[2016-09-29] MEDS: CLINDAMYCIN 600MG PREMIX IVPB 50 ML IVPB SCH ×2 (13:56→17:23)
[2016-09-29] MEDS ORDERED: PIPERACILLIN/TAZOB 3.375 GM 50 ML IVPB ONE (14:59)
--- NOTE | 2016-09-29 16:16 | EKG ---
Test Reason : Blood Pressure : / mmHG Vent. Rate : 074 BPM Atrial Rate : 074 BPM P-R Int : 138 ms QRS Dur : 080 ms QT Int : 408 ms P-R-T Axes : 047 029 060 degrees QTc Int : 452 ms POOR DATA QUALITY, INTERPRETATION MAY BE ADVERSELY AFFECTED NORMAL SINUS RHYTHM POSSIBLE LEFT ATRIAL ENLARGEMENT BORDERLINE ECG NO PREVIOUS ECGS AVAILABLE Confirmed by SIVA MEANS MD ([id number]) on 09/29/2016 4:16:40 PM Referred By: Confirmed By:SIVA MEANS MD
[2016-09-29] MEDS: ERTAPENEM SODIUM 1 GM in SODIUM CHLORIDE 50 ML IVPB SCH (16:27)
[2016-09-29] MEDS ORDERED: INSULIN (NOVOLOG) ASPART 100 UNITS/ML 10ML VIAL ONE (18:07)
--- NOTE | 2016-09-29 18:55 | CONSULT ---
Consult - Alcohol/Substance Use Hx Alcohol Use: No - Smoking History Smoking history: Never smoked Aproximately how many cigarettes per day: 0 If you are a former smoker, when did you quit?: 2011 Home Medications - Allergies Allergies/Adverse Reactions: Allergies Allergy/AdvReac Type Severity Reaction Status Date / Time No Known Allergies Allergy Verified 09/28/16 11:47 - Home Medications Home Medications: Ambulatory Orders Metformin HCl [Glucophage -] 1,000 mg PO BID 04/05/16 Aspirin [ASA -] 81 mg PO DAILY 09/28/16 Physical Exam Vital Signs: Vital Signs Temperature 97.6 F 09/29/16 13:33 Pulse Rate 73 09/29/16 13:33 Respiratory Rate 16 09/29/16 13:33 Blood Pressure 134/70 09/29/16 13:33 O2 Sat by Pulse Oximetry (%) 98 09/29/16 10:00 Labs: CBC, BMP 09/29/16 05:35 09/29/16 05:35 Assessment/Plan VAscular Surgery Pt seen and examined. Seen in vascular clinic last sunday Sent to us by Dr. White - podiatry. pt in [facility]. Right great toe and 4th toe with ulcers. Right great toe with bone exposed and draining, osteo by default. Pt has palpable pulses -- DP and PT Will consult dr. white for right great toe amputation. Cleared from a vascular stand point for that procedure. Will be on stand by for amp if podiatry not available. Will need MRI of right foot to check right 4th toe for osteo. Might need picc upon DC. Will follow Mayo Holland DO
[2016-09-29] MEDS: COLLAGENASE CLOSTRIDIUM HIST. 30 GRAMS TUBE TP SCH (21:48)
[2016-09-29] MEDS ORDERED: ENOXAPARIN NA (PORCINE) 120 MG/0.8 ML DISP.SYRIN SQ SCH (22:15)
--- NOTE | 2016-09-29 22:15 | HOSP ---
Physical Examination Vital Signs: Vital Signs Temperature 97.6 F 09/29/16 13:33 Pulse Rate 73 09/29/16 13:33 Respiratory Rate 16 09/29/16 13:33 Blood Pressure 134/70 09/29/16 13:33 O2 Sat by Pulse Oximetry (%) 98 09/29/16 10:00 Labs: CBC, BMP 09/29/16 05:35 09/29/16 05:35 Hospitalist Encounter Assessment: DVT - nurse called to report pt with DVT R mid calf. Started on lovenox 1mg/kg BID=90mg to start now (CrCl>60). Official read still pending.
[2016-09-29] MEDS ORDERED: ENOXAPARIN NA (PORCINE) 100 MG/1 ML DISP.SYRIN SQ ONE (23:00)
[2016-09-30] MEDS: VANCOMYCIN 1,250 MG in DEXTROSE 5%-WATER - 250 ML IVPB SCH (00:42)
[2016-09-30] MEDS: CLINDAMYCIN 600MG PREMIX IVPB 50 ML IVPB SCH ×3 (02:00→17:00)
[2016-09-30] MEDS: INSULIN SLIDING SCALE (NOVOLOG) 1 VIAL SQ SCH ×4 (06:28→21:22)
[2016-09-30 07:17] LABS: EOSINOPHIL 2.9 % (0-4.5); MCH 31.1 pg (25.7-33.7); MEAN CELL VOLUME 88.7 fl (80-96); MEAN PLT VOLUME 7.7 fl (7.5-11.1); NEUTROPHILS 61.5 % (42.8-82.8); PLATELET COUNT 453 K/MM3 (134-434); RDW 12.8 % (11.9-15.9); WHITE BLOOD COUNT 11.1 K/mm3 (4.0-10.0)
[2016-09-30 07:39] LABS: ALBUMIN 2.2 g/dl (3.4-5.0); ANION GAP 11 (8-16); BILIRUBIN,TOTAL 0.4 mg/dL (0.2-1.0); CALCIUM 8.5 mg/dL (8.5-10.1); CO2 28 mmol/L (21-32); COCKROFT - GAULT 147.07; CREATININE 0.7 mg/dL (0.7-1.3); GLUCOSE,RANDOM 189 mg/dL (74-106); MAGNESIUM 1.6 mg/dL (1.8-2.4); SGOT/AST 16 U/L (15-37); SGPT/ALT 21 U/L (12-78); TOT PROT 6.7 g/dl (6.4-8.2)
[2016-09-30 07:40] LABS: ALK PHOS 102 U/L (45-117)
[2016-09-30] MEDS ORDERED: MAGNESIUM OXIDE 400 MG TABLET (FP) PO ONE (08:45)
[2016-09-30 08:56] LABS: INR 1.14 (0.82-1.09); PROTHROMBIN TIME (PATIENT) 12.6 SEC (9.98-11.88)
[2016-09-30 08:58] LABS: ACTIVATED PTT 33.1 SECONDS (26.9-34.4)
[2016-09-30] MEDS: SODIUM CHLORIDE 1,000 ML IV SCH (09:57)
[2016-09-30] MEDS: ENOXAPARIN NA (PORCINE) 100 MG/1 ML DISP.SYRIN SQ SCH ×2 (09:58→21:22)
[2016-09-30] MEDS: ERTAPENEM SODIUM 1 GM in SODIUM CHLORIDE 50 ML IVPB SCH (09:58)
[2016-09-30] MEDS ORDERED: ERTAPENEM SODIUM 1 GM in SODIUM CHLORIDE 50 ML IVPB SCH (10:00)
[2016-09-30] MEDS ORDERED: ENOXAPARIN NA (PORCINE) 100 MG/1 ML DISP.SYRIN SQ SCH (10:00)
[2016-09-30] MEDS: COLLAGENASE CLOSTRIDIUM HIST. 30 GRAMS TUBE TP SCH (14:11)
--- NOTE | 2016-09-30 17:50 | PN ---
Progress Note (short form) - Note Progress Note: Subjective: The patient was seen and examined at the bedside, he has no complaints at this time. Awaiting MRI Current Medications Generic Name Dose Route Start Last Admin Trade Name Giovanni PRN Reason Stop Dose Admin Collagenase 1 applic 09/29/16 19:15 09/30/16 14:11 Santyl - TP Not Given DAILY CANDACE Enoxaparin Sodium 90 mg 09/30/16 10:00 09/30/16 09:58 Lovenox - SQ 90 mg BID CANDACE Administration Sodium Chloride 1,000 mls @ 75 mls/hr 09/29/16 05:30 09/30/16 09:57 Normal Saline - IV 75 mls/hr ASDIR CANDACE Administration Vancomycin HCl 1,250 mg/ 250 mls @ 166.667 mls/hr 09/30/16 01:00 09/30/16 00:42 Dextrose IVPB 166.667 mls/hr DAILY@0100 CANDACE Administration Protocol Clindamycin Phosphate 50 mls @ 100 mls/hr 09/29/16 13:45 09/30/16 17:00 Cleocin 600 Mg Premix Ivpb - IVPB 100 mls/hr Q8H-IV CANDACE Administration Ertapenem 1 gm/ Sodium 50 mls @ 50 mls/hr 09/29/16 14:45 09/30/16 09:58 Chloride IVPB 50 mls/hr DAILY CANDACE Administration Protocol Insulin Aspart 1 vial 09/29/16 07:00 09/30/16 17:02 Novolog Vial Sliding Scale - SQ 4 units TIDAC CANDACE Administration Protocol Objective: Vital Signs Period Temp Pulse Resp BP Sys/[place] Pulse Ox Last 24 Hr 98.0 F-99.1 F 71-78 16-20 118-160/75-94 98-98 Physical Exam: General: NAD, A&Ox3 Lungs: CTA bilaterally Heart: RRR, S1S2 Abd: Soft, non-tender, non-distended. Normoactive bowel sounds Ext: Right foot with dressing, malodorous. Patient refusing to remove dressing Neuro: CN 2-12 intact CBCD WBC 11.1 K/mm3 (4.0-10.0) H 09/30/16 06:00 RBC 3.64 M/mm3 (4.00-5.60) L 09/30/16 06:00 Hgb 11.3 GM/dL (11.7-16.9) L 09/30/16 06:00 Hct 32.3 % (35.4-49) L 09/30/16 06:00 MCV 88.7 fl (80-96) 09/30/16 06:00 MCHC 35.0 g/dl (32.0-35.9) 09/30/16 06:00 RDW 12.8 % (11.9-15.9) 09/30/16 06:00 Plt Count 453 K/MM3 (134-434) H 09/30/16 06:00 MPV 7.7 fl (7.5-11.1) 09/30/16 06:00 CMP Sodium 136 mmol/L (136-145) 09/30/16 06:00 Potassium 4.5 mmol/L (3.5-5.1) 09/30/16 06:00 Chloride 97 mmol/L (98-107) L 09/30/16 06:00 Carbon Dioxide 28 mmol/L (21-32) 09/30/16 06:00 Anion Gap 11 (8-16) 09/30/16 06:00 BUN 12 mg/dL (7-18) D 09/30/16 06:00 Creatinine 0.7 mg/dL (0.7-1.3) D 09/30/16 06:00 Creat Clearance w eGFR > 60 (>60) 09/30/16 06:00 Random Glucose 189 mg/dL (74-106) H D 09/30/16 06:00 Calcium 8.5 mg/dL (8.5-10.1) 09/30/16 06:00 Total Bilirubin 0.4 mg/dL (0.2-1.0) 09/30/16 06:00 AST 16 U/L (15-37) D 09/30/16 06:00 ALT 21 U/L (12-78) 09/30/16 06:00 Alkaline Phosphatase 102 U/L (45-117) 09/30/16 06:00 Total Protein 6.7 g/dl (6.4-8.2) 09/30/16 06:00 Albumin 2.2 g/dl (3.4-5.0) L 09/30/16 06:00 Microbiology 09/28/16 16:30 Blood - Peripheral Venous Blood Culture - Preliminary NO GROWTH OBTAINED AFTER 48 HOURS, INCUBATION TO CONTINUE FOR 3 DAYS. 09/28/16 16:45 Blood - Peripheral Venous Blood Culture - Preliminary NO GROWTH OBTAINED AFTER 48 HOURS, INCUBATION TO CONTINUE FOR 3 DAYS. 09/28/16 23:45 Toe - Right Hallux Gram Stain - Final 09/28/16 23:45 Toe - Right Hallux Wound Culture - Preliminary Non Lactose Fermenting Gnb 09/28/16 16:30 Urine - Urine Clean Catch Urine Culture - Final Assessment: This is a 56 year old male with PMHx of DM, diabetic foot ulcers who presented to the ED with weakness and generalized fatigue. Plan: 1) ID: Right foot infected diabetic ulcers - Hx of right foot ulcers since 2013 - 09/28 x-ray shows swelling, degenerative changes, soft tissue calcification, and soft tissue air - WBC continue to trend down - Remains afebrile - Continue Clindamycin - Continue Ertapenem - Continue Vancomycin - Plan for right great toe amputation - F/u MRI to r/o osteo of right foot, third digit - Appreciate ID consult - Appreciate vascular surgery consult 2) Vascular: Right posterior tibial vein DVT - Continue Lovenox 90mg sq bid - Will need to hold prior to surgery 3) Endocrine: DM - BGM ACHS - ISS ACHS 4) F/E/N: - Monitor electrolytes - Diabetic diet 5) Prophylaxis: - On Lovenox - OOB ambulating 6) Dispo: - Requires continued inpatient care CODE STATUS: FULL CODE Visit type - Emergency Visit Emergency Visit: Yes ED Registration Date: 09/28/16 Care time: The patient presented to the Emergency Department on the above date and was hospitalized for further evaluation of their emergent condition. - New Patient This patient is new to me today: Yes Date on this admission: 09/30/16 - Critical Care Critical Care patient: No
--- NOTE | 2016-09-30 18:41 | PN ---
Progress Note, Physician History of Present Illness: patient feeling well going for mri no changes otherwise - Current Medication List Current Medications: Active Medications Collagenase (Santyl -) 1 applic TP DAILY [facility] Last Admin: 09/30/16 14:11 Dose: Not Given Enoxaparin Sodium (Lovenox -) 90 mg SQ BID [facility] Last Admin: 09/30/16 09:58 Dose: 90 mg Sodium Chloride (Normal Saline -) 1,000 mls @ 75 mls/hr IV ASDIR [facility] Last Admin: 09/30/16 09:57 Dose: 75 mls/hr Vancomycin HCl 1,250 mg/ (Dextrose) 250 mls @ 166.667 mls/hr IVPB DAILY@0100 [facility] PRN Reason: Protocol Last Admin: 09/30/16 00:42 Dose: 166.667 mls/hr Clindamycin Phosphate (Cleocin 600 Mg Premix Ivpb -) 50 mls @ 100 mls/hr IVPB Q8H-IV [facility] Last Admin: 09/30/16 17:00 Dose: 100 mls/hr Ertapenem 1 gm/ Sodium (Chloride) 50 mls @ 50 mls/hr IVPB DAILY [facility] PRN Reason: Protocol Last Admin: 09/30/16 09:58 Dose: 50 mls/hr Insulin Aspart (Novolog Vial Sliding Scale -) 1 vial SQ TIDAC [facility] PRN Reason: Protocol Last Admin: 09/30/16 17:02 Dose: 4 units - Objective Vital Signs: Vital Signs Temperature 99.1 F 09/30/16 17:23 Pulse Rate 71 09/30/16 17:23 Respiratory Rate 18 09/30/16 17:23 Blood Pressure 158/75 09/30/16 17:23 O2 Sat by Pulse Oximetry (%) 98 09/30/16 10:00 Constitutional: Yes: No Distress, Calm Cardiovascular: Yes: Regular Rate and Rhythm Respiratory: Yes: Regular, CTA Bilaterally Gastrointestinal: Yes: Normal Bowel Sounds, Soft Musculoskeletal: Yes: Other Extremities: Yes: Other Integumentary: Yes: Other Wound/Incision: Yes: Dressing Dry and Intact Neurological: Yes: Alert, Oriented Psychiatric: Yes: Alert, Oriented Labs: CBC, BMP 09/30/16 06:00 09/30/16 06:00 INR, PTT INR 1.14 (0.82-1.09) 09/30/16 06:00 Assessment/Plan Problem List - Problem (1) r/o Gas gangrene Code(s): A48.0 - GAS GANGRENE (2) Diabetic foot ulcer Code(s): E11.621 - TYPE 2 DIABETES MELLITUS WITH FOOT ULCER L97.509 - NON-PRESSURE CHRONIC ULCER OTH PRT UNSP FOOT W UNSP SEVERITY (3) Noncompliance with diabetes treatment Code(s): Z91.19 - PATIENT'S NONCOMPLIANCE W OTH MEDICAL TREATMENT AND REGIMEN (4) Uncontrolled diabetes mellitus Code(s): E11.65 - TYPE 2 DIABETES MELLITUS WITH HYPERGLYCEMIA (5)gangrene of the foot plan continue abx await mri results probably needs amputation rest as per primary
[2016-10-01] MEDS: VANCOMYCIN 1,250 MG in DEXTROSE 5%-WATER - 250 ML IVPB SCH (00:32)
[2016-10-01] MEDS: SODIUM CHLORIDE 1,000 ML IV SCH ×2 (02:36→06:30)
[2016-10-01] MEDS: CLINDAMYCIN 600MG PREMIX IVPB 50 ML IVPB SCH ×3 (02:36→17:24)
[2016-10-01] MEDS: INSULIN SLIDING SCALE (NOVOLOG) 1 VIAL SQ SCH ×4 (06:29→21:00)
[2016-10-01 07:13] LABS: MCH 31.1 pg (25.7-33.7); MCHC 35.1 g/dl (32.0-35.9); MEAN CELL VOLUME 88.5 fl (80-96); MEAN PLT VOLUME 7.4 fl (7.5-11.1); PLATELET COUNT 481 K/MM3 (134-434); WHITE BLOOD COUNT 10.6 K/mm3 (4.0-10.0)
[2016-10-01] MEDS ORDERED: MAGNESIUM OXIDE 400 MG TABLET (FP) PO ONE ×2 (08:30→22:00)
[2016-10-01] MEDS: ENOXAPARIN NA (PORCINE) 100 MG/1 ML DISP.SYRIN SQ SCH ×2 (09:26→21:00)
--- NOTE | 2016-10-01 09:51 | PN ---
Progress Note (short form) - Note Progress Note: Subjective: The patient was seen and examined at the bedside, he has no complaints at this time. MRI right foot with osteomyelitis involving the first and third digits. Current Medications Generic Name Dose Route Start Last Admin Trade Name Giovanni PRN Reason Stop Dose Admin Collagenase 1 applic 09/29/16 19:15 09/30/16 14:11 Santyl - TP Not Given DAILY [facility] Enoxaparin Sodium 90 mg 09/30/16 10:00 10/01/16 09:26 Lovenox - SQ 90 mg BID [facility] Administration Sodium Chloride 1,000 mls @ 75 mls/hr 09/29/16 05:30 10/01/16 06:30 Normal Saline - IV Not Given ASDIR [facility] Vancomycin HCl 1,250 mg/ 250 mls @ 166.667 mls/hr 09/30/16 01:00 10/01/16 00:32 Dextrose IVPB 166.667 mls/hr DAILY@0100 [facility] Administration Protocol Clindamycin Phosphate 50 mls @ 100 mls/hr 09/29/16 13:45 10/01/16 09:26 Cleocin 600 Mg Premix Ivpb - IVPB 100 mls/hr Q8H-IV [facility] Administration Ertapenem 1 gm/ Sodium 50 mls @ 50 mls/hr 09/29/16 14:45 09/30/16 09:58 Chloride IVPB 50 mls/hr DAILY [facility] Administration Protocol Insulin Aspart 1 vial 09/30/16 22:00 10/01/16 06:29 Novolog Vial Sliding Scale - SQ 4 units ACHS C[facility]ACE Administration Protocol Magnesium Oxide 400 mg 10/01/16 22:00 Mag-Ox - PO 10/01/16 22:01 ONCE ONE Objective: Vital Signs Period Temp Pulse Resp BP Sys/[place] Pulse Ox Last 24 Hr 98.1 F-99.1 F 69-78 18-20 118-158/75-84 98-98 Physical Exam: General: NAD, A&Ox3 Lungs: CTA bilaterally Heart: RRR, S1S2 Abd: Soft, non-tender, non-distended. Normoactive bowel sounds Ext: Right great toe anterior and posterior wounds, slough, purulent drainage, malodorous. Right third toe with open wounds, slough, purulent drainage, malodorous. Neuro: CN 2-12 intact CBCD WBC 10.6 K/mm3 (4.0-10.0) H 10/01/16 06:00 RBC 3.67 M/mm3 (4.00-5.60) L 10/01/16 06:00 Hgb 11.4 GM/dL (11.7-16.9) L 10/01/16 06:00 Hct 32.5 % (35.4-49) L 10/01/16 06:00 MCV 88.5 fl (80-96) 10/01/16 06:00 MCHC 35.1 g/dl (32.0-35.9) 10/01/16 06:00 RDW 13.0 % (11.9-15.9) 10/01/16 06:00 Plt Count 481 K/MM3 (134-434) H 10/01/16 06:00 MPV 7.4 fl (7.5-11.1) L 10/01/16 06:00 CMP Sodium 136 mmol/L (136-145) 09/30/16 06:00 Potassium 4.5 mmol/L (3.5-5.1) 09/30/16 06:00 Chloride 97 mmol/L (98-107) L 09/30/16 06:00 Carbon Dioxide 28 mmol/L (21-32) 09/30/16 06:00 Anion Gap 11 (8-16) 09/30/16 06:00 BUN 12 mg/dL (7-18) D 09/30/16 06:00 Creatinine 0.7 mg/dL (0.7-1.3) D 09/30/16 06:00 Creat Clearance w eGFR > 60 (>60) 09/30/16 06:00 Random Glucose 189 mg/dL (74-106) H D 09/30/16 06:00 Calcium 8.5 mg/dL (8.5-10.1) 09/30/16 06:00 Total Bilirubin 0.4 mg/dL (0.2-1.0) 09/30/16 06:00 AST 16 U/L (15-37) D 09/30/16 06:00 ALT 21 U/L (12-78) 09/30/16 06:00 Alkaline Phosphatase 102 U/L (45-117) 09/30/16 06:00 Total Protein 6.7 g/dl (6.4-8.2) 09/30/16 06:00 Albumin 2.2 g/dl (3.4-5.0) L 09/30/16 06:00 Microbiology 09/28/16 23:45 Toe - Right Hallux Gram Stain - Final 09/28/16 23:45 Toe - Right Hallux Wound Culture - Preliminary Escherichia Coli Esbl Window Installer 09/28/16 16:30 Blood - Peripheral Venous Blood Culture - Preliminary NO GROWTH OBTAINED AFTER 48 HOURS, INCUBATION TO CONTINUE FOR 3 DAYS. 09/28/16 16:45 Blood - Peripheral Venous Blood Culture - Preliminary NO GROWTH OBTAINED AFTER 48 HOURS, INCUBATION TO CONTINUE FOR 3 DAYS. 09/28/16 16:30 Urine - Urine Clean Catch Urine Culture - Final Assessment: This is a 56 year old male with PMHx of DM, diabetic foot ulcers who presented to the ED with weakness and generalized fatigue. Plan: 1) ID: Right foot osteomyelitis - MRI with right foot first and third digit osteo. Possible early 2nd digit osteo - Hx of right foot ulcers since 2013 - WBC continue to trend down - Remains afebrile - Continue Clindamycin - Continue Ertapenem - Continue Vancomycin - Plan for right great toe amputation per vascular - Appreciate ID consult - Appreciate vascular surgery consult 2) Vascular: Right posterior tibial vein DVT - Continue Lovenox 90mg sq bid, will need to hold prior to surgery (not on schedule currently) 3) Endocrine: DM - BGM ACHS - ISS ACHS 4) F/E/N: - Monitor electrolytes - Hypomagnesemia: replete - Diabetic diet 5) Prophylaxis: - On Lovenox - OOB ambulating 6) Dispo: - Requires continued inpatient care CODE STATUS: FULL CODE Visit type - Emergency Visit Emergency Visit: Yes ED Registration Date: 09/28/16 Care time: The patient presented to the Emergency Department on the above date and was hospitalized for further evaluation of their emergent condition. - New Patient This patient is new to me today: Yes Date on this admission: 10/01/16 - Critical Care Critical Care patient: No
[2016-10-01] MEDS: COLLAGENASE CLOSTRIDIUM HIST. 30 GRAMS TUBE TP SCH (09:56)
[2016-10-01] MEDS: ERTAPENEM SODIUM 1 GM in SODIUM CHLORIDE 50 ML IVPB SCH (09:56)
[2016-10-01] MEDS ORDERED: INSULIN (NOVOLOG) ASPART 100 UNITS/ML 10ML VIAL ONE (12:03)
[2016-10-02] MEDS: VANCOMYCIN 1,250 MG in DEXTROSE 5%-WATER - 250 ML IVPB SCH (01:05)
[2016-10-02] MEDS: CLINDAMYCIN 600MG PREMIX IVPB 50 ML IVPB SCH ×3 (01:06→17:14)
[2016-10-02] MEDS: SODIUM CHLORIDE 1,000 ML IV SCH (05:53)
[2016-10-02] MEDS: INSULIN SLIDING SCALE (NOVOLOG) 1 VIAL SQ SCH ×4 (06:12→22:12)
[2016-10-02 07:54] LABS: MCH 30.4 pg (25.7-33.7); MCHC 34.2 g/dl (32.0-35.9); MEAN CELL VOLUME 88.9 fl (80-96); MEAN PLT VOLUME 7.3 fl (7.5-11.1); PLATELET COUNT 503 K/MM3 (134-434); RDW 12.9 % (11.9-15.9); WHITE BLOOD COUNT 11.4 K/mm3 (4.0-10.0)
[2016-10-02] MEDS: ENOXAPARIN NA (PORCINE) 100 MG/1 ML DISP.SYRIN SQ SCH ×2 (09:23→22:12)
[2016-10-02] MEDS: ERTAPENEM SODIUM 1 GM in SODIUM CHLORIDE 50 ML IVPB SCH (09:23)
--- NOTE | 2016-10-02 14:19 | PN ---
Progress Note (short form) - Note Progress Note: Subjective: The patient was seen and examined at the bedside, he has no complaints at this time. Discussed with Dr. Holland, for amputation of right foot great toe tomorrow Hold tomorrow AM dose of Lovenox Current Medications Generic Name Dose Route Start Last Admin Trade Name Freq PRN Reason Stop Dose Admin Collagenase 1 applic 09/29/16 19:15 10/01/16 09:56 Santyl - TP 1 applic DAILY [facility] Administration Enoxaparin Sodium 90 mg 09/30/16 10:00 10/02/16 09:23 Lovenox - SQ 10/02/16 23:59 90 mg BID [facility]ACE Administration Sodium Chloride 1,000 mls @ 75 mls/hr 09/29/16 05:30 10/02/16 05:53 Normal Saline - IV 75 mls/hr ASDIR [facility] Administration Vancomycin HCl 1,250 mg/ 250 mls @ 166.667 mls/hr 09/30/16 01:00 10/02/16 01:05 Dextrose IVPB 166.667 mls/hr DAILY@0100 [facility] Administration Protocol Clindamycin Phosphate 50 mls @ 100 mls/hr 09/29/16 13:45 10/02/16 09:23 Cleocin 600 Mg Premix Ivpb - IVPB 100 mls/hr Q8H-IV [facility] Administration Ertapenem 1 gm/ Sodium 50 mls @ 50 mls/hr 09/29/16 14:45 10/02/16 09:23 Chloride IVPB 50 mls/hr DAILY [facility] Administration Protocol Insulin Aspart 1 vial 09/30/16 22:00 10/02/16 12:01 Novolog Vial Sliding Scale - SQ 6 units ACHS [facility]ACE Administration Protocol Objective: Vital Signs Period Temp Pulse Resp BP Sys/[place] Pulse Ox Last 24 Hr 98 F-98.5 F 69-72 18-20 126-145/63-82 99-100 Physical Exam: General: NAD, A&Ox3 Lungs: CTA bilaterally Heart: RRR, S1S2 Abd: Soft, non-tender, non-distended. Normoactive bowel sounds Ext: Right foot dressing, c/d/i Neuro: CN 2-12 intact CBCD WBC 11.4 K/mm3 (4.0-10.0) H 10/02/16 05:40 RBC 3.64 M/mm3 (4.00-5.60) L 10/02/16 05:40 Hgb 11.1 GM/dL (11.7-16.9) L 10/02/16 05:40 Hct 32.4 % (35.4-49) L 10/02/16 05:40 MCV 88.9 fl (80-96) 10/02/16 05:40 MCHC 34.2 g/dl (32.0-35.9) 10/02/16 05:40 RDW 12.9 % (11.9-15.9) 10/02/16 05:40 Plt Count 503 K/MM3 (134-434) H 10/02/16 05:40 MPV 7.3 fl (7.5-11.1) L 10/02/16 05:40 CMP Sodium 136 mmol/L (136-145) 09/30/16 06:00 Potassium 4.5 mmol/L (3.5-5.1) 09/30/16 06:00 Chloride 97 mmol/L (98-107) L 09/30/16 06:00 Carbon Dioxide 28 mmol/L (21-32) 09/30/16 06:00 Anion Gap 11 (8-16) 09/30/16 06:00 BUN 12 mg/dL (7-18) D 09/30/16 06:00 Creatinine 0.7 mg/dL (0.7-1.3) D 09/30/16 06:00 Creat Clearance w eGFR > 60 (>60) 09/30/16 06:00 Random Glucose 189 mg/dL (74-106) H D 09/30/16 06:00 Calcium 8.5 mg/dL (8.5-10.1) 09/30/16 06:00 Total Bilirubin 0.4 mg/dL (0.2-1.0) 09/30/16 06:00 AST 16 U/L (15-37) D 09/30/16 06:00 ALT 21 U/L (12-78) 09/30/16 06:00 Alkaline Phosphatase 102 U/L (45-117) 09/30/16 06:00 Total Protein 6.7 g/dl (6.4-8.2) 09/30/16 06:00 Albumin 2.2 g/dl (3.4-5.0) L 09/30/16 06:00 Microbiology 09/28/16 16:30 Blood - Peripheral Venous Blood Culture - Preliminary NO GROWTH OBTAINED AFTER 72 HOURS, INCUBATION TO CONTINUE FOR 2 DAYS. 09/28/16 16:45 Blood - Peripheral Venous Blood Culture - Preliminary NO GROWTH OBTAINED AFTER 72 HOURS, INCUBATION TO CONTINUE FOR 2 DAYS. 09/28/16 23:45 Toe - Right Hallux Gram Stain - Final 09/28/16 23:45 Toe - Right Hallux Wound Culture - Final Escherichia Coli Esbl Watch Assembly Inspector Corynebacterium Species 09/28/16 16:30 Urine - Urine Clean Catch Urine Culture - Final Assessment: This is a 56 year old male with PMHx of DM, diabetic foot ulcers who presented to the ED with weakness and generalized fatigue. Plan: 1) ID: Right foot osteomyelitis - MRI with right foot first and third digit osteo. Possible early 2nd digit osteo - For amputation of right foot first digit amputation tomorrow - Continue Clindamycin - Continue Ertapenem - Continue Vancomycin - No absolute contraindications from medical standpoint against proceeding with toe amputation. The patient is intermediate clinical risk (due to diabetes) with good exercise capacity going for a low risk procedure. The patient has no evidence of ACS, active chest pain, he is euvolemic with no evidence of decompensated heart failure, no arrhythmias noted, hence pre-operative cardiovascular imaging is not indicated. - Appreciate ID consult - Appreciate vascular surgery consult 2) Vascular: Right posterior tibial vein DVT - Continue Lovenox 90mg sq bid, hold AM dose tomorrow for surgery 3) Endocrine: DM - BGM ACHS - ISS ACHS 4) F/E/N: - Monitor electrolytes - Hypomagnesemia: resolved - Diabetic diet 5) Prophylaxis: - On Lovenox, hold tomorrow morning for surgery - OOB ambulating 6) Dispo: - Requires continued inpatient care CODE STATUS: FULL CODE Visit type - Emergency Visit Emergency Visit: Yes ED Registration Date: 09/28/16 Care time: The patient presented to the Emergency Department on the above date and was hospitalized for further evaluation of their emergent condition. - New Patient This patient is new to me today: No - Critical Care Critical Care patient: No
--- NOTE | 2016-10-02 15:12 | SPA.PREOP ---
- PRE-OP NOTE Dx: Right great toe/foot infection Planned Procedure: Right great toe amputation Surgeon: Dr. Holland Last Vital Signs Temp Pulse Resp BP Pulse Ox 98.2 F 69 20 150/80 100 10/02/16 14:41 10/02/16 14:41 10/02/16 14:41 10/02/16 14:41 10/02/16 09:00 Lab Results WBC 11.4 K/mm3 (4.0-10.0) H 10/02/16 05:40 RBC 3.64 M/mm3 (4.00-5.60) L 10/02/16 05:40 Hgb 11.1 GM/dL (11.7-16.9) L 10/02/16 05:40 Hct 32.4 % (35.4-49) L 10/02/16 05:40 MCV 88.9 fl (80-96) 10/02/16 05:40 MCHC 34.2 g/dl (32.0-35.9) 10/02/16 05:40 RDW 12.9 % (11.9-15.9) 10/02/16 05:40 Plt Count 503 K/MM3 (134-434) H 10/02/16 05:40 Sodium 136 mmol/L (136-145) 09/30/16 06:00 Potassium 4.5 mmol/L (3.5-5.1) 09/30/16 06:00 Chloride 97 mmol/L (98-107) L 09/30/16 06:00 Carbon Dioxide 28 mmol/L (21-32) 09/30/16 06:00 Anion Gap 11 (8-16) 09/30/16 06:00 BUN 12 mg/dL (7-18) D 09/30/16 06:00 Creatinine 0.7 mg/dL (0.7-1.3) D 09/30/16 06:00 Random Glucose 189 mg/dL (74-106) H D 09/30/16 06:00 Calcium 8.5 mg/dL (8.5-10.1) 09/30/16 06:00 INR 1.14 (0.82-1.09) 09/30/16 06:00 PE: Right great toe with puruent drainage. 2nd toe with mild eschar to dorsal aspect of toe, gd cap refill at base. Third toe with eschar to dorsal aspect/ plantar surface with poor cap refill. - IMAGING MRI: Image Reviewed (09/30-osteomyelitits of 1st/3rd toe with edema of 2nd toe( possible early osteo)), Other Other: Report Reviewed (RLE vascular study- 09/29-right posterior tibial vein) - ASSESSMENT/PLAN 1. Make NPO after midnight except po meds 2. hold DVT ppx dose in the am 3. Please Medically optimization / clearance the patient for surgery 4. Consent to be obtained by Dr. Holland, spoke with him regarding Lovenox dose /DVT Visit type - Case Type Case Type: ED Admission - Emergency Emergency Visit: Yes ED Registration Date: 09/28/16 Care time: The patient presented to the Emergency Department on the above date and was hospitalized for further evaluation of their emergent condition. - New patient This patient is new to me today: Yes Date on this admission: 10/02/16 - Critical Care Critical Care patient: No
[2016-10-02] MEDS: COLLAGENASE CLOSTRIDIUM HIST. 30 GRAMS TUBE TP SCH (15:23)
--- NOTE | 2016-10-02 17:14 | PN ---
Progress Note, Physician History of Present Illness: patent doing well no issues - Current Medication List Current Medications: Active Medications Collagenase (Santyl -) 1 applic TP DAILY [facility] Last Admin: 10/02/16 15:23 Dose: 1 applic Enoxaparin Sodium (Lovenox -) 90 mg SQ BID [facility] Stop: 10/02/16 23:59 Last Admin: 10/02/16 09:23 Dose: 90 mg Sodium Chloride (Normal Saline -) 1,000 mls @ 75 mls/hr IV ASDIR [facility] Last Admin: 10/02/16 05:53 Dose: 75 mls/hr Vancomycin HCl 1,250 mg/ (Dextrose) 250 mls @ 166.667 mls/hr IVPB DAILY@0100 [facility] PRN Reason: Protocol Last Admin: 10/02/16 01:05 Dose: 166.667 mls/hr Clindamycin Phosphate (Cleocin 600 Mg Premix Ivpb -) 50 mls @ 100 mls/hr IVPB Q8H-IV [facility] Last Admin: 10/02/16 09:23 Dose: 100 mls/hr Ertapenem 1 gm/ Sodium (Chloride) 50 mls @ 50 mls/hr IVPB DAILY [facility] PRN Reason: Protocol Last Admin: 10/02/16 09:23 Dose: 50 mls/hr Insulin Aspart (Novolog Vial Sliding Scale -) 1 vial SQ ACHS [facility] PRN Reason: Protocol Last Admin: 10/02/16 12:01 Dose: 6 units - Objective Vital Signs: Vital Signs Temperature 98.2 F 10/02/16 14:41 Pulse Rate 69 10/02/16 14:41 Respiratory Rate 20 10/02/16 14:41 Blood Pressure 150/80 10/02/16 14:41 O2 Sat by Pulse Oximetry (%) 100 10/02/16 09:00 Constitutional: Yes: No Distress, Calm Cardiovascular: Yes: Regular Rate and Rhythm Respiratory: Yes: Regular, CTA Bilaterally Gastrointestinal: Yes: Normal Bowel Sounds, Soft Musculoskeletal: Yes: Other Extremities: Yes: Other Wound/Incision: Yes: Dressing Dry and Intact Neurological: Yes: Alert, Oriented Psychiatric: Yes: Alert, Oriented Labs: CBC, BMP 10/02/16 05:40 09/30/16 06:00 INR, PTT INR 1.14 (0.82-1.09) 09/30/16 06:00 Assessment/Plan Problem List - Problem (1) r/o Gas gangrene Code(s): A48.0 - GAS GANGRENE (2) Diabetic foot ulcer Code(s): E11.621 - TYPE 2 DIABETES MELLITUS WITH FOOT ULCER L97.509 - NON-PRESSURE CHRONIC ULCER OTH PRT UNSP FOOT W UNSP SEVERITY (3) Noncompliance with diabetes treatment Code(s): Z91.19 - PATIENT'S NONCOMPLIANCE W OTH MEDICAL TREATMENT AND REGIMEN (4) Uncontrolled diabetes mellitus Code(s): E11.65 - TYPE 2 DIABETES MELLITUS WITH HYPERGLYCEMIA (5)gangrene of the foot plan continue current mgmt await for all results wound care rest as per primary
[2016-10-02] MEDS ORDERED: INSULIN (NOVOLOG) ASPART 100 UNITS/ML 10ML VIAL ONE (22:08)
[2016-10-03] MEDS: CLINDAMYCIN 600MG PREMIX IVPB 50 ML IVPB SCH ×4 (01:18→18:40)
[2016-10-03] MEDS: SODIUM CHLORIDE 1,000 ML IV SCH ×3 (01:19→18:07)
[2016-10-03] MEDS: VANCOMYCIN 1,250 MG in DEXTROSE 5%-WATER - 250 ML IVPB SCH (01:19)
[2016-10-03] MEDS: INSULIN SLIDING SCALE (NOVOLOG) 1 VIAL SQ SCH ×4 (06:26→21:09)
[2016-10-03 07:12] LABS: MCH 31.1 pg (25.7-33.7); MCHC 34.7 g/dl (32.0-35.9); MEAN CELL VOLUME 89.9 fl (80-96); MEAN PLT VOLUME 7.3 fl (7.5-11.1)
[2016-10-03 09:02] LABS: PLATELET COUNT 498 K/MM3 (134-434)
[2016-10-03] MEDS: ERTAPENEM SODIUM 1 GM in SODIUM CHLORIDE 50 ML IVPB SCH ×3 (09:40→14:12)
--- NOTE | 2016-10-03 09:52 | PN ---
Progress Note (short form) - Note Progress Note: Subjective: The patient was seen and examined at the bedside, he has no complaints at this time. For surgery today Current Medications Generic Name Dose Route Start Last Admin Trade Name Giovanni PRN Reason Stop Dose Admin Collagenase 1 applic 09/29/16 19:15 10/02/16 15:23 Santyl - TP 1 applic DAILY [facility] Administration Sodium Chloride 1,000 mls @ 75 mls/hr 09/29/16 05:30 10/03/16 06:26 Normal Saline - IV Not Given ASDIR [facility] Vancomycin HCl 1,250 mg/ 250 mls @ 166.667 mls/hr 09/30/16 01:00 10/03/16 01:19 Dextrose IVPB 166.667 mls/hr DAILY@0100 [facility] Administration Protocol Clindamycin Phosphate 50 mls @ 100 mls/hr 09/29/16 13:45 10/03/16 01:18 Cleocin 600 Mg Premix Ivpb - IVPB 100 mls/hr Q8H-IV [facility] Administration Ertapenem 1 gm/ Sodium 50 mls @ 50 mls/hr 09/29/16 14:45 10/02/16 09:23 Chloride IVPB 50 mls/hr DAILY [facility] Administration Protocol Insulin Aspart 1 vial 09/30/16 22:00 10/03/16 06:26 Novolog Vial Sliding Scale - SQ Not Given ACHS CANDACE Protocol Objective: Vital Signs Period Temp Pulse Resp BP Sys/[place] Pulse Ox Last 24 Hr 98.2 F-978 F 69-71 18-20 126-169/71-88 100 Physical Exam: General: NAD, A&Ox3 Lungs: CTA bilaterally Heart: RRR, S1S2 Abd: Soft, non-tender, non-distended. Normoactive bowel sounds Ext: Right foot dressing, c/d/i Neuro: CN 2-12 intact CBCD WBC 13.0 K/mm3 (4.0-10.0) H 10/03/16 05:35 RBC 3.61 M/mm3 (4.00-5.60) L 10/03/16 05:35 Hgb 11.2 GM/dL (11.7-16.9) L 10/03/16 05:35 Hct 32.4 % (35.4-49) L 10/03/16 05:35 MCV 89.9 fl (80-96) 10/03/16 05:35 MCHC 34.7 g/dl (32.0-35.9) 10/03/16 05:35 RDW 13.0 % (11.9-15.9) 10/03/16 05:35 Plt Count 498 K/MM3 (134-434) H 10/03/16 05:35 MPV 7.3 fl (7.5-11.1) L 10/03/16 05:35 CMP Sodium 136 mmol/L (136-145) 09/30/16 06:00 Potassium 4.5 mmol/L (3.5-5.1) 09/30/16 06:00 Chloride 97 mmol/L (98-107) L 09/30/16 06:00 Carbon Dioxide 28 mmol/L (21-32) 09/30/16 06:00 Anion Gap 11 (8-16) 09/30/16 06:00 BUN 12 mg/dL (7-18) D 09/30/16 06:00 Creatinine 0.7 mg/dL (0.7-1.3) D 09/30/16 06:00 Creat Clearance w eGFR > 60 (>60) 09/30/16 06:00 Random Glucose 189 mg/dL (74-106) H D 09/30/16 06:00 Calcium 8.5 mg/dL (8.5-10.1) 09/30/16 06:00 Total Bilirubin 0.4 mg/dL (0.2-1.0) 09/30/16 06:00 AST 16 U/L (15-37) D 09/30/16 06:00 ALT 21 U/L (12-78) 09/30/16 06:00 Alkaline Phosphatase 102 U/L (45-117) 09/30/16 06:00 Total Protein 6.7 g/dl (6.4-8.2) 09/30/16 06:00 Albumin 2.2 g/dl (3.4-5.0) L 09/30/16 06:00 Microbiology 09/28/16 16:30 Blood - Peripheral Venous Blood Culture - Preliminary NO GROWTH OBTAINED AFTER 96 HOURS, INCUBATION TO CONTINUE FOR 1 DAYS. 09/28/16 16:45 Blood - Peripheral Venous Blood Culture - Preliminary NO GROWTH OBTAINED AFTER 96 HOURS, INCUBATION TO CONTINUE FOR 1 DAYS. 09/28/16 23:45 Toe - Right Hallux Gram Stain - Final 09/28/16 23:45 Toe - Right Hallux Wound Culture - Final Escherichia Coli Esbl [employer] Kil[employer] Placer Corynebacterium Species 09/28/16 16:30 Urine - Urine Clean Catch Urine Culture - Final Assessment: This is a 56 year old male with PMHx of DM, diabetic foot ulcers who presented to the ED with weakness and generalized fatigue. Plan: 1) ID: Right foot osteomyelitis - MRI with right foot first and third digit osteo. Possible early 2nd digit osteo - For amputation of right foot first digit amputation today - Continue Clindamycin - Continue Ertapenem - Continue Vancomycin - No absolute contraindications from medical standpoint against proceeding with toe amputation. The patient is intermediate clinical risk (due to diabetes) with good exercise capacity going for a low risk procedure. The patient has no evidence of ACS, active chest pain, he is euvolemic with no evidence of decompensated heart failure, no arrhythmias noted, hence pre-operative cardiovascular imaging is not indicated. - Appreciate ID consult - Appreciate vascular surgery consult 2) Vascular: Right posterior tibial vein DVT - Continue Lovenox 90mg sq bid, holding dose this AM for surgery, resume once cleared by surgery 3) Endocrine: DM - BGM ACHS - ISS ACHS 4) F/E/N: - Monitor electrolytes - Diabetic diet 5) Prophylaxis: - Hold treatment dose Lovenox today for surgery - OOB ambulating 6) Dispo: - Requires continued inpatient care CODE STATUS: FULL CODE Visit type - Emergency Visit Emergency Visit: Yes ED Registration Date: 09/28/16 Care time: The patient presented to the Emergency Department on the above date and was hospitalized for further evaluation of their emergent condition. - New Patient This patient is new to me today: No - Critical Care Critical Care patient: No
--- NOTE | 2016-10-03 10:10 | PN ---
Progress Note, Physician History of Present Illness: patent doing well no issues feels better - Current Medication List Current Medications: Active Medications Collagenase (Santyl -) 1 applic TP DAILY [facility] Last Admin: 10/02/16 15:23 Dose: 1 applic Sodium Chloride (Normal Saline -) 1,000 mls @ 75 mls/hr IV ASDIR [facility] Last Admin: 10/03/16 06:26 Dose: Not Given Vancomycin HCl 1,250 mg/ (Dextrose) 250 mls @ 166.667 mls/hr IVPB DAILY@0100 [facility] PRN Reason: Protocol Last Admin: 10/03/16 01:19 Dose: 166.667 mls/hr Clindamycin Phosphate (Cleocin 600 Mg Premix Ivpb -) 50 mls @ 100 mls/hr IVPB Q8H-IV [facility] Last Admin: 10/03/16 01:18 Dose: 100 mls/hr Ertapenem 1 gm/ Sodium (Chloride) 50 mls @ 50 mls/hr IVPB DAILY [facility] PRN Reason: Protocol Last Admin: 10/02/16 09:23 Dose: 50 mls/hr Insulin Aspart (Novolog Vial Sliding Scale -) 1 vial SQ ACHS [facility] PRN Reason: Protocol Last Admin: 10/03/16 06:26 Dose: Not Given - Objective Vital Signs: Vital Signs Temperature 98.3 F 10/03/16 09:49 Pulse Rate 71 10/03/16 09:49 Respiratory Rate 20 10/03/16 09:49 Blood Pressure 128/79 10/03/16 09:49 O2 Sat by Pulse Oximetry (%) 100 10/02/16 21:00 Constitutional: Yes: No Distress, Calm Cardiovascular: Yes: Regular Rate and Rhythm Respiratory: Yes: Regular, CTA Bilaterally Gastrointestinal: Yes: Normal Bowel Sounds, Soft Musculoskeletal: Yes: Other Extremities: Yes: Other Wound/Incision: Yes: Dressing Dry and Intact Neurological: Yes: Alert, Oriented Psychiatric: Yes: Alert, Oriented Labs: CBC, BMP 10/03/16 05:35 09/30/16 06:00 INR, PTT INR 1.14 (0.82-1.09) 09/30/16 06:00 Assessment/Plan Problem List - Problem (1) r/o Gas gangrene Code(s): A48.0 - GAS GANGRENE (2) Diabetic foot ulcer Code(s): E11.621 - TYPE 2 DIABETES MELLITUS WITH FOOT ULCER L97.509 - NON-PRESSURE CHRONIC ULCER OTH PRT UNSP FOOT W UNSP SEVERITY (3) Noncompliance with diabetes treatment Code(s): Z91.19 - PATIENT'S NONCOMPLIANCE W OTH MEDICAL TREATMENT AND REGIMEN (4) Uncontrolled diabetes mellitus Code(s): E11.65 - TYPE 2 DIABETES MELLITUS WITH HYPERGLYCEMIA (5)gangrene of the foot plan continue current mgmt await for all results wound care rest as per primary
[2016-10-03] MEDS: COLLAGENASE CLOSTRIDIUM HIST. 30 GRAMS TUBE TP SCH (11:43)
[2016-10-03] MEDS ORDERED: ONDANSETRON 4 MG/2 ML VIAL IVPUSH PRN ×2 (12:08→13:23)
[2016-10-03] MEDS ORDERED: LIDOCAINE HCL 1%, 10 MG/ML (20ML VIAL) ONE (12:13)
[2016-10-03] MEDS ORDERED: LIDOCAINE HCL 1%, 10 MG/ML (20ML VIAL) IJ ONE (12:16)
[2016-10-03] MEDS ORDERED: PROPOFOL 20 ML ONE ×2 (12:21→12:30)
[2016-10-03] MEDS ORDERED: BACITRACIN 30 GM TUBE TOPICAL OINTMENT ONE (13:00)
--- NOTE | 2016-10-03 13:06 | OP ---
Operative Note - Note: Operative Date: 10/03/16 Pre-Operative Diagnosis: right foot gangrene Operation: Right great toe and third toe amputation Post-Operative Diagnosis: Same as Pre-op Surgeon: Mayo Holland Anesthesia: Fractional Estimated Blood Loss (mls): 50 Operative Report Dictated: Yes
--- NOTE | 2016-10-03 13:51 | CONS ---
DATE OF CONSULTATION: 09/30/2016 Patient seen at bedside lying comfortably in no acute distress. MEDICAL HISTORY: Type 1 diabetes. SOCIAL HISTORY: Former smoker, stopped in 2011. ALLERGIES: No known drug allergies. REVIEW OF SYSTEMS: Cold hands and feet. EXAMINATION: Peripheral vascular: Dorsalis pedis 2 out of 4, right foot. Posterior tibial pulse 1 out of 4, right foot. Capillary return instantaneous. Neurological examination: Loss of protective sensation, bilateral feet. Orthopedic examination: Contracted digits 1 through 5, right foot. Dermatological: Ulceration dorsal aspect of the right hallux and right 4th toe. Bone exposed, right hallux. Cellulitis and osteomyelitis, right hallux. Vital signs: Stable. White blood cell count 16.1, glucose 293. ASSESSMENT: Ulceration right hallux and right 4th toe with osteomyelitis right hallux. PLAN: The [facility] and is undergoing hyperbaric oxygen therapy. The patient was last seen in my office on September 15. The case was discussed with Dr. Holland. Dr. Holland will be doing the amputation of the right hallux, possibly right 4th toe on Sunday. MRI is pending. Postop care will be done by Dr. Holland. The patient may follow up in my office after the wound has healed for orthopedic shoes. JERMAINE MARTIN/[id number]
[2016-10-04] MEDS: SODIUM CHLORIDE 1,000 ML IV SCH ×3 (00:25→21:55)
[2016-10-04] MEDS: VANCOMYCIN 1,250 MG in DEXTROSE 5%-WATER - 250 ML IVPB SCH (00:26)
[2016-10-04] MEDS: CLINDAMYCIN 600MG PREMIX IVPB 50 ML IVPB SCH ×3 (01:05→17:49)
[2016-10-04] MEDS: INSULIN SLIDING SCALE (NOVOLOG) 1 VIAL SQ SCH ×4 (06:16→21:56)
[2016-10-04 07:48] LABS: MCH 30.5 pg (25.7-33.7); MCHC 34.5 g/dl (32.0-35.9); MEAN CELL VOLUME 88.3 fl (80-96); MEAN PLT VOLUME 6.4 fl (7.5-11.1); PLATELET COUNT 530 K/MM3 (134-434); RDW 12.9 % (11.9-15.9); WHITE BLOOD COUNT 11.6 K/mm3 (4.0-10.0)
[2016-10-04 08:11] LABS: ALBUMIN 2.2 g/dl (3.4-5.0); ANION GAP 9 (8-16); CALCIUM 8.3 mg/dL (8.5-10.1); CO2 27 mmol/L (21-32); COCKROFT - GAULT 147.07; CREATININE 0.7 mg/dL (0.7-1.3); GLUCOSE,RANDOM 196 mg/dL (74-106); SGOT/AST 52 U/L (15-37); SGPT/ALT 70 U/L (12-78)
[2016-10-04 08:14] LABS: ALK PHOS 118 U/L (45-117); BILIRUBIN,TOTAL 0.3 mg/dL (0.2-1.0); TOT PROT 6.7 g/dl (6.4-8.2)
--- NOTE | 2016-10-04 09:38 | PN ---
Progress Note (short form) - Note Progress Note: Subjective: The patient was seen and examined at the bedside, he has no complaints at this time. Discussed with Dr. 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 Can start Eliquis for DVT this AM Awaiting further discussion with ID re: PICC line placement for correction IV abx Current Medications Generic Name Dose Route Start Last Admin Trade Name Freq PRN Reason Stop Dose Admin Apixaban 10 mg 10/04/16 10:00 Eliquis - PO BID CANDACE Collagenase 1 applic 10/04/16 10:00 Santyl - TP DAILY CANDACE Fentanyl 50 mcg 10/03/16 13:23 Sublimaze Injection - IVPUSH 10/06/16 12:09 [id number] PRN PAIN Clindamycin Phosphate 50 mls @ 100 mls/hr 10/03/16 18:00 10/04/16 09:30 Cleocin 600 Mg Premix Ivpb - IVPB 100 mls/hr Q8H-IV CANDACE Administration Ertapenem 1 gm/ Sodium 50 mls @ 50 mls/hr 10/04/16 10:00 10/03/16 14:12 Chloride IVPB 50 mls/hr DAILY CANDACE Administration Protocol Sodium Chloride 1,000 mls @ 75 mls/hr 10/03/16 13:23 10/04/16 00:25 Normal Saline - IV 75 mls/hr ASDIR CANDACE Administration Vancomycin HCl 1,250 mg/ 250 mls @ 166.667 mls/hr 10/04/16 01:00 10/04/16 00:26 Dextrose IVPB 166.667 mls/hr DAILY@0100 CANDACE Administration Protocol Insulin Aspart 1 vial 10/03/16 16:30 10/04/16 06:16 Novolog Vial Sliding Scale - SQ 4 units ACHS CANDACE Administration Protocol Objective: Vital Signs Period Temp Pulse Resp BP Sys/[place] Pulse Ox Last 24 Hr 97.5 F-98.6 F 66-75 12-20 128-178/77-96 95-99 Physical Exam: General: NAD, A&Ox3 Lungs: CTA bilaterally Heart: RRR, S1S2 Abd: Soft, non-tender, non-distended. Normoactive bowel sounds Ext: Right foot dressing, c/d/i Neuro: CN 2-12 intact CBCD WBC 11.6 K/mm3 (4.0-10.0) H 10/04/16 07:30 RBC 3.70 M/mm3 (4.00-5.60) L 10/04/16 07:30 Hgb 11.3 GM/dL (11.7-16.9) L 10/04/16 07:30 Hct 32.7 % (35.4-49) L 10/04/16 07:30 MCV 88.3 fl (80-96) 10/04/16 07:30 MCHC 34.5 g/dl (32.0-35.9) 10/04/16 07:30 RDW 12.9 % (11.9-15.9) 10/04/16 07:30 Plt Count 530 K/MM3 (134-434) H 10/04/16 07:30 MPV 6.4 fl (7.5-11.1) L D 10/04/16 07:30 CMP Sodium 138 mmol/L (136-145) 10/04/16 07:30 Potassium 4.1 mmol/L (3.5-5.1) 10/04/16 07:30 Chloride 102 mmol/L (98-107) 10/04/16 07:30 Carbon Dioxide 27 mmol/L (21-32) 10/04/16 07:30 Anion Gap 9 (8-16) 10/04/16 07:30 BUN 9 mg/dL (7-18) D 10/04/16 07:30 Creatinine 0.7 mg/dL (0.7-1.3) 10/04/16 07:30 Creat Clearance w eGFR > 60 (>60) 10/04/16 07:30 Random Glucose 196 mg/dL (74-106) H 10/04/16 07:30 Calcium 8.3 mg/dL (8.5-10.1) L 10/04/16 07:30 Total Bilirubin 0.3 mg/dL (0.2-1.0) D 10/04/16 07:30 AST 52 U/L (15-37) H D 10/04/16 07:30 ALT 70 U/L (12-78) D 10/04/16 07:30 Alkaline Phosphatase 118 U/L (45-117) H 10/04/16 07:30 Total Protein 6.7 g/dl (6.4-8.2) 10/04/16 07:30 Albumin 2.2 g/dl (3.4-5.0) L 10/04/16 07:30 Microbiology 09/28/16 16:30 Blood - Peripheral Venous Blood Culture - Final NO GROWTH AFTER 5 DAYS INCUBATION 09/28/16 16:45 Blood - Peripheral Venous Blood Culture - Final NO GROWTH AFTER 5 DAYS INCUBATION 09/28/16 23:45 Toe - Right Hallux Gram Stain - Final 09/28/16 23:45 Toe - Right Hallux Wound Culture - Final Escherichia Coli Esbl Lcsw Corynebacterium Species 09/28/16 16:30 Urine - Urine Clean Catch Urine Culture - Final Assessment: This is a 56 year old male with PMHx of DM, diabetic foot ulcers who presented to the ED with weakness and generalized fatigue. Plan: 1) ID: Right foot osteomyelitis - MRI with right foot first and third digit osteo. Possible early 2nd digit osteo - S/p first and third digit, right foot amputation on 10/03 - Non-weight bearing per surgery - Continue Clindamycin (09/28- ) - Continue Ertapenem (09/29- ) - Continue Vancomycin (09/28- ) - Appreciate ID consult - Appreciate vascular surgery consult 2) Vascular: Right posterior tibial vein DVT - Started on Eliquis 10mg po bid this AM 3) Endocrine: DM - BGM ACHS - ISS ACHS 4) F/E/N: - Monitor electrolytes - Diabetic diet 5) Prophylaxis: - Eliquis 10mg po bid - OOB ambulating 6) Dispo: - Requires continued inpatient care CODE STATUS: FULL CODE Visit type - Emergency Visit Emergency Visit: Yes ED Registration Date: 09/28/16 Care time: The patient presented to the Emergency Department on the above date and was hospitalized for further evaluation of their emergent condition. - New Patient This patient is new to me today: No - Critical Care Critical Care patient: No
--- NOTE | 2016-10-04 10:18 | PN ---
Progress Note (short form) - Note Progress Note: Surgery- Dr. Holland Patient seen and examined. Patient states he is doing well and has no pain in his foot. He has no complaints, denies F/C/N/V. Last Vital Signs Temp Pulse Resp BP Pulse Ox 99.4 F 70 20 138/81 98 10/04/16 10:01 10/04/16 10:01 10/04/16 10:01 10/04/16 10:01 10/03/16 21:00 CBC, BMP 10/04/16 07:30 10/04/16 07:30 Exam: Gen: NAD, pleasant and cooperative RLE: dressing clean, dry, intact A/P POD#1 s/p Right great toe and third toe amputation, right foot gangrene Dressing c/d/i continue abx per ID NWB RLE
[2016-10-04] MEDS: ERTAPENEM SODIUM 1 GM in SODIUM CHLORIDE 50 ML IVPB SCH (11:09)
[2016-10-04] MEDS: APIXABAN 5 MG TABLET PO SCH ×2 (11:10→21:57)
[2016-10-04] MEDS: COLLAGENASE CLOSTRIDIUM HIST. 30 GRAMS TUBE TP SCH (11:29)
[2016-10-04] MEDS ORDERED: INSULIN (NOVOLOG) ASPART 100 UNITS/ML 10ML VIAL ONE (21:36)
[2016-10-05] MEDS ORDERED: PT OWN MED DRAWER 7, Y5N ONE ×3 (01:00→18:53)
[2016-10-05] MEDS: VANCOMYCIN 1,250 MG in DEXTROSE 5%-WATER - 250 ML IVPB SCH (01:54)
[2016-10-05] MEDS: CLINDAMYCIN 600MG PREMIX IVPB 50 ML IVPB SCH ×3 (01:54→17:52)
[2016-10-05] MEDS: INSULIN SLIDING SCALE (NOVOLOG) 1 VIAL SQ SCH ×4 (06:35→21:09)
--- NOTE | 2016-10-05 08:55 | PN ---
Progress Note, Physician Chief Complaint: Patient denies all c/o at present. - Current Medication List Current Medications: Active Medications Apixaban (Eliquis -) 10 mg PO BID [facility] Stop: 10/10/16 22:01 Last Admin: 10/04/16 21:57 Dose: 10 mg Collagenase (Santyl -) 1 applic TP DAILY [facility] Last Admin: 10/04/16 11:29 Dose: Not Given Clindamycin Phosphate (Cleocin 600 Mg Premix Ivpb -) 50 mls @ 100 mls/hr IVPB Q8H-IV [facility] Last Admin: 10/05/16 01:54 Dose: 100 mls/hr Ertapenem 1 gm/ Sodium (Chloride) 50 mls @ 50 mls/hr IVPB DAILY [facility] PRN Reason: Protocol Last Admin: 10/04/16 11:09 Dose: 50 mls/hr Sodium Chloride (Normal Saline -) 1,000 mls @ 75 mls/hr IV ASDIR [facility] Last Admin: 10/04/16 21:55 Dose: 75 mls/hr Vancomycin HCl 1,250 mg/ (Dextrose) 250 mls @ 166.667 mls/hr IVPB DAILY@0100 [facility] PRN Reason: Protocol Last Admin: 10/05/16 01:54 Dose: 166.667 mls/hr Insulin Aspart (Novolog Vial Sliding Scale -) 1 vial SQ ACHS [facility] PRN Reason: Protocol Last Admin: 10/05/16 06:35 Dose: 4 units - Objective Vital Signs: Vital Signs 3 Temperature 98.3 F 10/05/16 06:00 Pulse Rate 70 10/05/16 06:00 Respiratory Rate 20 10/05/16 06:00 Blood Pressure 160/80 10/05/16 06:00 O2 Sat by Pulse Oximetry (%) 96 10/04/16 21:00 Constitutional: Yes: Well Nourished, No Distress, Calm Eyes: Yes: Conjunctiva Clear, EOM Intact HENT: Yes: Atraumatic, Normocephalic Neck: Yes: Supple, Trachea Midline Cardiovascular: Yes: Regular Rate and Rhythm, S1, S2. No: Tachycardia, Murmur Respiratory: Yes: Regular, CTA Bilaterally. No: Accessory Muscle Use, Cough Gastrointestinal: Yes: Normal Bowel Sounds, Soft. No: Rectal Bleeding, Vomiting ...Rectal Exam: Yes: Deferred Genitourinary: No: CVA Tenderness - Left, CVA Tenderness - Right Musculoskeletal: Yes: Other (right 1st and 3rd toe amputation POD#2. Dsg c/d/i.) Extremities: Yes: Amputation (right 1st and 3rd toe amputation POD#2. Dsg c/d/i. ) Neurological: Yes: Alert, Oriented, Cran Nerves II-XII Intact ...Motor Strength: WNL Labs: CBC, BMP 10/04/16 07:30 10/04/16 07:30 INR, PTT 3 INR 1.14 (0.82-1.09) 09/30/16 06:00 Microbiology 09/28/16 16:30 Blood - Peripheral Venous Blood Culture - Final NO GROWTH AFTER 5 DAYS INCUBATION 09/28/16 16:45 Blood - Peripheral Venous Blood Culture - Final NO GROWTH AFTER 5 DAYS INCUBATION 09/28/16 23:45 Toe - Right Hallux Gram Stain - Final 09/28/16 23:45 Toe - Right Hallux Wound Culture - Final Escherichia Coli Esbl Injector Assembler Corynebacterium Species 09/28/16 16:30 Urine - Urine Clean Catch Urine Culture - Final Impression/Plan Impression/Plan: A: This is a 56 yo man with h/o DM who is POD#3 for amputation of right digits 1 and 3 for osteomyelitis. Dressing is c/d/i. P: Right foot osteomyelitis - MRI with right foot first and third digit osteomyelitis. Possible early 2nd digit osteomyelitis - S/p first and third digit, right foot amputation on 10/03 - Non-weight bearing per surgery - Continue Clindamycin (09/28- ) - Continue Ertapenem (09/29- ) - Continue Vancomycin (09/28- ) - Appreciate ID consult - Appreciate vascular surgery consult Right posterior tibial vein DVT - Started on Eliquis 10mg po bid 10/04 DM - BGM ACHS - ISS ACHS F/E/N - Monitor electrolytes - Diabetic diet PPX - Eliquis 10mg po bid - OOB ambulating Dispo - Requires continued inpatient care CODE STATUS: FULL CODE Visit type - Emergency Visit Emergency Visit: Yes ED Registration Date: 09/28/16 Care time: The patient presented to the Emergency Department on the above date and was hospitalized for further evaluation of their emergent condition. - New Patient This patient is new to me today: Yes Date on this admission: 10/05/16 - Critical Care Critical Care patient: No
[2016-10-05] MEDS: COLLAGENASE CLOSTRIDIUM HIST. 30 GRAMS TUBE TP SCH (10:52)
[2016-10-05] MEDS: APIXABAN 5 MG TABLET PO SCH ×2 (11:07→21:09)
[2016-10-05] MEDS: ERTAPENEM SODIUM 1 GM in SODIUM CHLORIDE 50 ML IVPB SCH (11:50)
[2016-10-05] MEDS ORDERED: INSULIN (NOVOLOG) ASPART 100 UNITS/ML 10ML VIAL ONE ×4 (11:55→21:04)
--- NOTE | 2016-10-05 14:51 | PATH ---
Surgical Pathology Report Patient Name: MAXIMILIAN BOLTON [facility]. Rec. #: [id number] /Age/Gender: 1960 (Age: 56) / M Account: [id number] Location: 4 PEDS/ADOL Taken: 10/03/2016 Received: 10/03/2016 Reported: 10/05/2016 Physicians: Mayo Holland Specimen(s) Received AMPUTATION RIGHT 1ST & 2ND TOES Clinical History Diabetic foot ulcer, gangrene right Final Diagnosis FIRST AND THIRD TOES, RIGHT, AMPUTATION: BOTH TOES WITH ULCERATED AND NECROTIC SKIN AND UNDERLYING SOFT TISSUE WITH ACUTE NECROTIZING INFLAMMATION AND GANGRENOUS NECROSIS. UNDERLYING BONES (BOTH TOES) WITH CHRONIC OSTEOMYELITIS. ACUTE NECROTIZING INFLAMMATION AND FOCAL NECROSIS EXTEND TO THE SKIN AND SOFT TISSUE MARGINS OF BOTH TOES. CHRONIC OSTEOMYELITIS EXTENDS TO THE RESECTION MARGINS OF BOTH TOES. SEPARATE FRAGMENTS OF BONE WITH CHRONIC OSTEOMYELITIS. Electronically Signed Rk Ortiz M.D. Gross Description Received in formalin labeled "right first toe and third toe" are 2 toe amputation specimens. The larger amputation, consistent with the first toe, measures 6.2 x 4.0 x 4.0 cm. The entire epidermal surface displays a black-lara, focally ulcerated, gangrenous lesion which appears to involve the skin and soft tissue margin. The lesion involves the underlying bone. The second toe amputation measures 6.0 x 2.3 x 2.3 cm. The entire epidermal surface displays a black-silva, focally ulcerated coming in greatest lesion which appears to involve the skin and soft tissue margin. The lesion involves the underlying bone. Separately received within the same container is a 2.0 x 1.8 x 1.7 cm undesignated portion of bone. The bone displays smooth articular cartilage at one end and smooth trabecular bone at the opposing end. Configuration Management Specialist sections are submitted in 8 cassettes as follows: 1-first digit lesion with underlying bone, following decalcification; 2-bone margin from first digit, following decalcification; 3-skin and soft tissue margin from first digit; 4-second digit lesion with underlying bone, following decalcification; 5-bone margin from second digit, following decalcification; 6-skin and soft tissue margin from second digit; 7-margin with articular cartilage from separately received portion of bone, following decalcification; 8-margin with trabecular bone from separately received portion of bone, following decalcification. 10/04/2016 saudi10/04/2016
--- NOTE | 2016-10-05 17:23 | PN ---
Progress Note (short form) - Note Progress Note: VAscular Surgery Left foot dressing changed. Incision sites look good. BAcitracin ordered to place on amputation sites. Pt says he is going home when he is discharged. He will need to come to [facility] as outpt. P[facility] set up start date -- he already is approved. no weight bearing on the left foot please. Mayo Holland DO
[2016-10-05] MEDS: BACITRACIN 30 GM TUBE TOPICAL OINTMENT TP SCH (17:42)
[2016-10-05] MEDS: SODIUM CHLORIDE 1,000 ML IV SCH (17:51)
[2016-10-05] MEDS ORDERED: PICC LINE 8 ML FLUSH PROTOCOL IVPUSH PRN (18:48)
--- NOTE | 2016-10-05 19:36 | PN ---
Progress Note, Physician History of Present Illness: pateint doing well no issues - Current Medication List Current Medications: Active Medications Apixaban (Eliquis -) 10 mg PO BID [facility] Stop: 10/10/16 22:01 Last Admin: 10/05/16 11:07 Dose: 10 mg Bacitracin (Bacitracin -) 1 applic TP DAILY [facility] Last Admin: 10/05/16 17:42 Dose: 1 applic Collagenase (Santyl -) 1 applic TP DAILY [facility] Last Admin: 10/05/16 10:52 Dose: Not Given IV Flush (Picc Line Flush) 8 ml IVPUSH PRN PRN PRN Reason: Protocol Ertapenem 1 gm/ Sodium (Chloride) 50 mls @ 50 mls/hr IVPB DAILY CANDACE PRN Reason: Protocol Last Admin: 10/05/16 11:50 Dose: 50 mls/hr Sodium Chloride (Normal Saline -) 1,000 mls @ 75 mls/hr IV ASDIR [facility] Last Admin: 10/05/16 17:51 Dose: 75 mls/hr Insulin Aspart (Novolog Vial Sliding Scale -) 1 vial SQ ACHS CANDACE PRN Reason: Protocol Last Admin: 10/05/16 17:49 Dose: 2 units - Objective Vital Signs: Vital Signs Temperature 98.7 F 10/05/16 18:57 Pulse Rate 74 10/05/16 18:57 Respiratory Rate 18 10/05/16 18:57 Blood Pressure 168/95 10/05/16 18:57 O2 Sat by Pulse Oximetry (%) 96 10/05/16 11:10 Constitutional: Yes: No Distress, Calm Cardiovascular: Yes: Regular Rate and Rhythm Respiratory: Yes: Regular, CTA Bilaterally Gastrointestinal: Yes: Normal Bowel Sounds, Soft Musculoskeletal: Yes: Other Extremities: Yes: Other Wound/Incision: Yes: Dressing Dry and Intact Neurological: Yes: Alert, Oriented Psychiatric: Yes: Alert Labs: CBC, BMP 10/04/16 07:30 10/04/16 07:30 INR, PTT INR 1.14 (0.82-1.09) 09/30/16 06:00 Assessment/Plan Problem List - Problem (1) r/o Gas gangrene Code(s): A48.0 - GAS GANGRENE (2) Diabetic foot ulcer Code(s): E11.621 - TYPE 2 DIABETES MELLITUS WITH FOOT ULCER L97.509 - NON-PRESSURE CHRONIC ULCER OTH PRT UNSP FOOT W UNSP SEVERITY (3) Noncompliance with diabetes treatment Code(s): Z91.19 - PATIENT'S NONCOMPLIANCE W OTH MEDICAL TREATMENT AND REGIMEN (4) Uncontrolled diabetes mellitus Code(s): E11.65 - TYPE 2 DIABETES MELLITUS WITH HYPERGLYCEMIA (5)gangrene of the foot plan patients results noted cx results noted patient doing well will decide on sensitivities further plan of abx
--- NOTE | 2016-10-05 19:41 | PN ---
Progress Note, Physician History of Present Illness: patent doing well no issues - Current Medication List Current Medications: Active Medications Apixaban (Eliquis -) 10 mg PO BID [facility] Stop: 10/10/16 22:01 Last Admin: 10/05/16 11:07 Dose: 10 mg Bacitracin (Bacitracin -) 1 applic TP DAILY [facility] Last Admin: 10/05/16 17:42 Dose: 1 applic Collagenase (Santyl -) 1 applic TP DAILY [facility] Last Admin: 10/05/16 10:52 Dose: Not Given IV Flush (Picc Line Flush) 8 ml IVPUSH PRN PRN PRN Reason: Protocol Ertapenem 1 gm/ Sodium (Chloride) 50 mls @ 50 mls/hr IVPB DAILY [facility] PRN Reason: Protocol Last Admin: 10/05/16 11:50 Dose: 50 mls/hr Sodium Chloride (Normal Saline -) 1,000 mls @ 75 mls/hr IV ASDIR [facility] Last Admin: 10/05/16 17:51 Dose: 75 mls/hr Insulin Aspart (Novolog Vial Sliding Scale -) 1 vial SQ ACHS [facility] PRN Reason: Protocol Last Admin: 10/05/16 17:49 Dose: 2 units - Objective Vital Signs: Vital Signs Temperature 98.7 F 10/05/16 18:57 Pulse Rate 74 10/05/16 18:57 Respiratory Rate 18 10/05/16 18:57 Blood Pressure 168/95 10/05/16 18:57 O2 Sat by Pulse Oximetry (%) 96 10/05/16 11:10 Constitutional: Yes: No Distress, Calm Cardiovascular: Yes: Regular Rate and Rhythm Respiratory: Yes: Regular, CTA Bilaterally Gastrointestinal: Yes: Normal Bowel Sounds, Soft Musculoskeletal: Yes: Other Extremities: Yes: Other Wound/Incision: Yes: Dressing Dry and Intact Neurological: Yes: Alert, Oriented Psychiatric: Yes: Alert, Oriented Labs: CBC, BMP 10/04/16 07:30 10/04/16 07:30 INR, PTT INR 1.14 (0.82-1.09) 09/30/16 06:00 Assessment/Plan Problem List - Problem (1) r/o Gas gangrene Code(s): A48.0 - GAS GANGRENE (2) Diabetic foot ulcer Code(s): E11.621 - TYPE 2 DIABETES MELLITUS WITH FOOT ULCER L97.509 - NON-PRESSURE CHRONIC ULCER OTH PRT UNSP FOOT W UNSP SEVERITY (3) Noncompliance with diabetes treatment Code(s): Z91.19 - PATIENT'S NONCOMPLIANCE W OTH MEDICAL TREATMENT AND REGIMEN (4) Uncontrolled diabetes mellitus Code(s): E11.65 - TYPE 2 DIABETES MELLITUS WITH HYPERGLYCEMIA (5)gangrene of the foot plan patients results noted cx results noted will stop all abx except ertapenam rest as per primary team
[2016-10-06] MEDS: INSULIN SLIDING SCALE (NOVOLOG) 1 VIAL SQ SCH ×2 (06:20→11:30)
[2016-10-06 08:21] LABS: BASOPHIL 0.8 % (0-2.0); EOSINOPHIL 3.7 % (0-4.5); MCH 30.6 pg (25.7-33.7); MCHC 34.4 g/dl (32.0-35.9); MEAN CELL VOLUME 88.9 fl (80-96); MEAN PLT VOLUME 6.4 fl (7.5-11.1); NEUTROPHILS 62.3 % (42.8-82.8); PLATELET COUNT 531 K/MM3 (134-434); RDW 13.2 % (11.9-15.9); WHITE BLOOD COUNT 11.4 K/mm3 (4.0-10.0)
[2016-10-06] MEDS: APIXABAN 5 MG TABLET PO SCH (09:28)
[2016-10-06] MEDS: COLLAGENASE CLOSTRIDIUM HIST. 30 GRAMS TUBE TP SCH (09:28)
[2016-10-06] MEDS: ERTAPENEM SODIUM 1 GM in SODIUM CHLORIDE 50 ML IVPB SCH (09:30)
[2016-10-06 12:28] VITALS: BP 159/89; PULSE 71; TEMP 99.3
--- NOTE | 2016-10-06 15:26 | DS ---
Physical Exam: SUBJECTIVE: Patient seen and examined OBJECTIVE: Vital Signs Period Temp Pulse Resp BP Sys/[place] Pulse Ox Last 24 Hr 98.1 F-99.3 F 67-74 18-20 156-168/82-95 95-97 PHYSICAL EXAM GENERAL: The patient is awake, alert, and fully oriented, in no acute distress. HEAD: Normal with no signs of trauma. EYES: PERRL, extraocular movements intact, sclera anicteric, conjunctiva clear. ENT: Ears normal, nares patent, oropharynx clear without exudates, moist mucous membranes. NECK: Trachea midline, full range of motion, supple. LUNGS: Breath sounds equal, clear to auscultation bilaterally, no wheezes, no crackles, no accessory muscle use. HEART: Regular rate and rhythm, S1, S2 without murmur, rub or gallop. ABDOMEN: Soft, nontender, nondistended, normoactive bowel sounds, no guarding, no rebound, no hepatosplenomegaly, no masses. EXTREMITIES: 2+ pulses, warm, well-perfused, no edema. NEUROLOGICAL: Cranial nerves II through XII grossly intact. Normal speech, gait not observed. PSYCH: Normal mood, normal affect. SKIN: Warm, dry, normal turgor, no rashes or lesions noted. LABS Laboratory Results - last 24 hr 10/05/16 10/05/16 10/06/16 17:48 20:53 06:13 WBC RBC Hgb Hct MCV MCHC RDW Plt Count MPV Neutrophils % Lymphocytes % Monocytes % Eosinophils % Basophils % POC Glucometer 182 236 186 10/06/16 07:35 WBC 11.4 H RBC 3.66 L Hgb 11.2 L Hct 32.5 L MCV 88.9 MCHC 34.4 RDW 13.2 Plt Count 531 H MPV 6.4 L Neutrophils % 62.3 Lymphocytes % 23.9 Monocytes % 9.3 Eosinophils % 3.7 Basophils % 0.8 POC Glucometer HOSPITAL COURSE: Date of Admission:09/28/16 Date of Discharge: 10/06/16 Pre hospital course This is a 56 y/o male with a past medical history of Diabetes Mellitus, Diabetic Ulcers (wound center-hyperbaric therapy). Presented to the ED with weakness and generalized fatigue. Patient reported having subjective fevers and chills for a week. Patient reported recent completion of antibiotics for an infection to his R-great toe. Patient reported foul-smelling discharge from his R- great toe. ER course was notable for: (1) WBC 16.1 (2) Xray report: trabecular irregularities at base of distal tuft of distal phalanx great toe as well as irregular elongated contour of lateral osteophytes of distal interphalangeal joint. suspicious for acute fracture(s). Question acute fracture distal diaphysis of proximal phalanx great toe. Emphysema in overlying soft tissues. (3) Glucose 216 Subsequent hospital course Right foot osteomyelitis - MRI with right foot first and third digit osteomyelitis. Possible early 2nd digit osteomyelitis - S/p first and third digit, right foot amputation on 10/03 - Treated with clindamycin, ertapenem, vanc - discharged to home with IV ertapenem therapy x 4 weeks Right posterior tibial vein DVT - Started on Eliquis 10mg po bid 10/04 [facility] with Dr. Holland. Minutes to complete discharge: 35 Discharge Summary Reason For Visit: DIABETIC FOOT ULCER/GAS GANGRENE Current Active Problems DVT prophylaxis (Acute) Foot ulcer due to secondary DM (Acute) Gas gangrene (Acute) - Instructions Diet, Activity, Other Instructions: Two prescriptions have been sent to your pharmacy for Eliquis. Take 10mg twice daily for 5 days (10 pills total). Then take 5mg twice daily and stay on that dose. [facility] an [facility] on October 12, 2016 at 1:00pm with Dr. Holland. When you see Dr. Holland you should discuss with him when to start hyperbaric therapy. Return to the emergency department for any new or worsening symptoms. Disposition: HOME - Home Medications Comprehensive Discharge Medication List: Ambulatory Orders Metformin HCl [Glucophage -] 1,000 mg PO BID 04/05/16 Aspirin [ASA -] 81 mg PO DAILY 09/28/16 Apixaban [Eliquis -] 10 mg PO BID #10 tablet 10/06/16 Apixaban [Eliquis] 5 mg PO BID #60 tablet 10/06/16 Apixaban [Eliquis] 5 mg PO BID 60 Days 10/06/16 Bacitracin - [Bacitracin Topical Ointment -] 1 applic TP DAILY #1 tube 10/06/16 Collagenase Clostridium Hist. [Santyl -] 1 applic TP DAILY #1 tube 10/06/16 Ertapenem Sodium [Invanz -] 1 gm IVPB DAILY #38 vial 10/06/16 This patient is new to me today: Yes Date on this admission: 10/18/16 Emergency Visit: Yes ED Registration Date: 09/28/16 Care time: The patient presented to the Emergency Department on the above date and was hospitalized for further evaluation of their emergent condition. Critical Care patient: No - Discharge Referral [facility] to [facility] Yes Physician Referral: Mayo Holland DO ([facility])
[2016-10-06] MEDS: BACITRACIN 30 GM TUBE TOPICAL OINTMENT TP SCH (17:31)
--- NOTE | 2016-10-07 12:21 | OP ---
DATE OF OPERATION: 10/03/2016 PREOPERATIVE DIAGNOSIS: Right foot gangrene. POSTOPERATIVE DIAGNOSIS: Right foot gangrene. PROCEDURE: Amputation great toe and 3rd toe. SURGEON: Mayo Christensen MD ANESTHESIA: Fractional. BLOOD LOSS: 50 mL. INDICATIONS: The patient is a 56-year-old male who has gangrene of his 1st and 3rd toes on his right foot. It was felt that he would need amputation. He has a palpable pulse there, and it should heal his wounds. Patient was consented for the procedure understanding all risks, benefits, and alternatives and was then taken to the operating room. PROCEDURE IN DETAIL: Once in the operating room, he was placed on the operating table in the supine manner. The area of the right foot was prepped and draped in the sterile surgical manner. We then went ahead and made an elliptical incision around the 1st and 3rd toes using a 15 blade. Patient was given a lidocaine nerve block prior to the start of the operation, and that was injected by myself. Using a 15 blade, we made an elliptical incision around the great toe and the 3rd toe. Bovie electrocautery was used to control hemostasis, and using Bovie electrocautery, we were able to take the subcutaneous tissue down all the way to the bone, and then, using a bone cutter, the bone was cut. We then took the bone of the great toe down all the way down to the metatarsal head. The metatarsal head was nice and clean. At this junction, we irrigated the wound copiously, and we then went ahead and used a 3-0 silk suture and mattress sutures were placed to close the wound. We then went ahead and went to the 3rd toe. Using Bovie electrocautery, we got down through all the subcutaneous tissue down to the bone. Using a bone cutter, the toe was cut and sent to Pathology. The rest of the bone was taken down using a rongeur all the way down to the metatarsal head. We then went ahead and irrigated the wound copiously, and using 3-0 silk, we were able to close the wound in a mattress fashion. We then went ahead and wet and dried the area. Xeroform was placed, 4 x 4 and Kerlix were placed. The patient tolerated the procedure with no complications. Patient transferred to PACU in stable condition. Total blood loss was 50 mL. MAYO CHRISTENSEN DO [id number]
== END 2016-10-06 17:55 | disposition home or self-care (01) | DRG 255 ==
LOC: JER 11:25 → JERBED 23:14 → UNDOADMIN 23:59 → JERBED 23:59 → J4S 09-29 02:28
PROVIDERS: ADMIT Internal Medicine; ATTEND Nurse Practitioner Acute Care
PROC: 0Y6T0Z0 Detachment at Right 3rd Toe, Complete, Open Approach (ICD-10-PCS; principal; 2016-10-03 10:30)
PROC: 02HV33Z Insertion of Infusion Device into Superior Vena Cava, Percutaneous Approach (ICD-10-PCS; 2016-10-06)
PROC: B518YZA Fluoroscopy of Superior Vena Cava using Other Contrast, Guidance (ICD-10-PCS; 2016-10-06)
DX: E11.52 Type 2 diabetes mellitus with diabetic peripheral angiopathy with gangrene (principal); A48.0 Gas gangrene; M86.671 Other chronic osteomyelitis, right ankle and foot; E11.65 Type 2 diabetes mellitus with hyperglycemia; I82.441 Acute embolism and thrombosis of right tibial vein; E11.621 Type 2 diabetes mellitus with foot ulcer; L97.519 Non-pressure chronic ulcer of other part of right foot with unspecified severity; E11.69 Type 2 diabetes mellitus with other specified complication; Z91.19 Patient's noncompliance with other medical treatment and regimen
CPT/HCPCS: 36415; 36569; 71010-TC; 73660-TC; 73718-TC; 77001-TC; 80048; 80053; 80307; 81003; 81015; 82009; 83036; 83605; 83735; 85025; 85027; 85610; 85730; 87040; 87070; 87086; 87186; 87205; 88305-TC; 88311-TC; 93005; 93010; 93971-TC; 94760; 97116-GP; 97161-GP; 99284-25; C1751; J1644

== ENCOUNTER 2016-12-12 13:26 | Emergency (ER) | payer BC ==
[2016-12-12 13:45] VITALS: TEMP 98.5; BMI 25.3
--- NOTE | 2016-12-12 13:59 | PDOC ---
History of Present Illness - General Chief Complaint: Blood Sugar Problem Stated Complaint: HYPERGLYCEMIC Time Seen by Provider: 12/12/16 13:49 - History of Present Illness Initial Comments: 12/12/16 18:32 Patient is a 56-year-old male with past medical history of diabetes, diabetic foot ulcer with gangrene, presenting emergency department today complaining of lightheadedness and high blood sugar. Patient states that he forgot to take his morning insulin today and decided to walk home to get it. 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 As he was walking home he felt lightheaded and weak so he stopped into the family medical practice in [facility]. There was found he had elevated blood sugar over 500 so he was transferred to the emergency department. Patient states that he feels much better since receiving the fluids from the [facility] medical practice. States that he feels fine at this time. Denies fevers, chills, nausea, vomiting, diarrhea, recent illness, chest pain, shortness of breath, cough, weakness, lethargy and malaise. Past History - Travel Traveled outside of the country in the last 30 days: No Close contact w/someone who was outside of country & ill: No - Past Medical History Allergies/Adverse Reactions: Allergies Allergy/AdvReac Type Severity Reaction Status Date / Time No Known Allergies Allergy Verified 12/12/16 13:38 Home Medications: Ambulatory Orders Metformin HCl [Glucophage -] 1,000 mg PO BID 04/05/16 Apixaban [Eliquis] 5 mg PO BID 60 Days 10/06/16 Cephalexin Monohydrate [Keflex -] 500 mg PO Q6H #28 capsule 12/12/16 Insulin Glargine,Hum.rec.anlog [Lantus (10mL VIAL) -] 0 units SQ DAILY 12/12/16 Levofloxacin [Levaquin -] 500 mg PO DAILY #7 tablet 12/12/16 Sulfamethoxazole/Trimethoprim [Bactrim Ds -] 1 tab PO BID #14 tablet 12/12/16 Anemia: No Asthma: No Cancer: No Cardiac Disorders: No CVA: No COPD: No CHF: No Dementia: No Diabetes: Yes Disorders: No HTN: Yes Liver Disease: No Suicide Attempt (Hx): No Seizures: No Thyroid Disease: No - Surgical History Appendectomy: No Cardiac Surgery: No Cholecystectomy: No Lung Surgery: No Neurologic Surgery: No Orthopedic Surgery: No - Psycho/Social/Smoking Cessation Hx Anxiety: No Suicidal Ideation: No Smoking Status: Yes Smoking History: Former smoker Have you smoked in the past 12 months: No Number of Cigarettes Smoked Daily: 0 If you are a former smoker, when did you quit?: 2011 Information on smoking cessation initiated: No Hx Alcohol Use: No Drug/Substance Use Hx: No Substance Use Type: None Hx Substance Use Treatment: No Review of Systems - Review of Systems Able to Perform ROS?: Yes Is the patient limited Bol[place]ian proficient: No *Physical Exam - Vital Signs Last Vital Signs Temp Pulse Resp BP Pulse Ox 98.5 F 83 12 164/97 100 12/12/16 13:26 12/12/16 13:26 12/12/16 13:26 12/12/16 13:26 12/12/16 13:26 - Physical Exam Comments: 12/12/16 18:32 GENERAL: Well developed, well nourished. Awake and alert. No acute distress. HEENT: Normocephalic, atraumatic. PERRLA, EOMI. No conjunctival pallor. Sclera are non- icteric. Moist mucous membranes. Oropharynx is clear. NECK: Supple. Full ROM. No JVD. Carotid pulses 2+ and symmetric, without bruits. No thyromegaly. No lymphadenopathy. CARDIOVASCULAR: Regular rate and rhythm. No murmurs, rubs, or gallops. Distal pulses are 2+ and symmetric. PULMONARY: No evidence of respiratory distress. Lungs clear to auscultation bilaterally. No wheezing, rales or rhonchi. ABDOMINAL: Soft. Non-tender. Non-distended. No rebound or guarding. No organomegaly. Normoactive bowel sounds. MUSCULOSKELETAL Normal range of motion at all joints. No bony deformities or tenderness. No CVA tenderness. EXTREMITIES: No cyanosis. No clubbing. No edema. No calf tenderness. SKIN: Warm and dry. Normal capillary refill. No rashes. No jaundice. NEUROLOGICAL: Alert, awake, appropriate. Cranial nerves 2-12 intact. No deficits to light touch and temperature in face, upper extremities and lower extremities. No motor deficits in the in face, upper extremities and lower extremities. Normoreflexic in the upper and lower extremities. Normal speech. Toes are down- going bilaterally. Gait is normal without ataxia. PSYCHIATRIC: Cooperative. Good eye contact. Appropriate mood and affect. ED Treatment Course - LABORATORY CBC & Chemistry Diagram: 12/12/16 14:28 12/12/16 14:28 Medical Decision Making - Medical Decision Making 12/12/16 15:21 Patient is a 56-year-old male with past medical history of diabetes, diabetic foot ulcer with gangrene, presenting emergency department today complaining of lightheadedness and high blood sugar. Sugar is most likely due to his missing of his insulin. However given the lightheadedness and weakness we will order basic lab work. We will also keep the fluids running. Once basic labs come back will dose insulin appropriately. 1.CBC, CMP, CMP, UA, acetone 2.EKG 3.fluids 4.reevaluate 12/12/16 15:59 White blood cell count is markedly elevated at 14. Chart review reveals that the patient had a gangrenous foot back in September. The right third toe appears swollen with a noticeable ulceration on the top of the third toe. There is drainage and a foul odor from the site. 1.blood cultures, wound culture 2. ESR and CRP 3.x-ray of foot 12/12/16 17:01 Foot x-ray: Impression status post appendectomy patient of the first and third toe market soft tissue swelling of the second toe with likely healing fracture in the distal shaft of the proximal phalanx. Correlation with MRI of the right foot with be the study of choice rule out osteomyelitis in view of the clinical history. 12/12/16 17:[address] Holland, vascular surgeon. Would admit the patient at this time for IV antibiotics and further workup. Agreed with plan and will present admission to patient. 12/12/16 17:49 Shared these results with the patient. Patient does not want to stay in the hospital as he states he does not have the time off of work. Explained that this infection could be serious and should be treated with IV antibiotics as there is a healing fracture with an open wound. Also explained the importance of IV antibiotics in light of his diabetes. Patient is still refusing admission and IV antibiotics. Patient wishes to sign out AMA. Described all of the possible negative effects of leaving AMA including worsening infection, sepsis, DKA, loss of toe, . Patient still wishes to leave. Patient signed the AMA form with Dr. Lewis's witness. Sent antibiotics to his pharmacy he understands that he needs to take them. He is also to follow-up with Dr. Holland within the week. Pt. understands that if he gets worse ie fevers, chills, nausea, vomiting, weakness, he is to return to the ED immediately *DC/Admit/Observation/Transfer Diagnosis at time of Disposition: Diabetic foot ulcer Qualifiers: Diabetic foot ulcer location: toe Diabetes mellitus type: type 2 Laterality: right Non-pressure ulcer stage: unspecified non-pressure ulcer stage Qualified Code(s): E11.621 - Type 2 diabetes mellitus with foot ulcer Toe fracture, right Qualifiers: Encounter type: initial encounter Toe: lesser toe Fracture type: open Phalanx: middle Fracture alignment: nondisplaced Qualified Code(s): S92.524B - Nondisplaced fracture of medial phalanx of right lesser toe(s), initial encounter for open fracture - Discharge Dispostion Disposition: AGAINST MEDICAL ADVICE - Prescriptions Prescriptions: Sulfamethoxazole/Trimethoprim [Bactrim Ds -] 1 tab PO BID #14 tablet Cephalexin Monohydrate [Keflex -] 500 mg PO Q6H #28 capsule Levofloxacin [Levaquin -] 500 mg PO DAILY #7 tablet - Patient Instructions Printed Discharge Instructions: DI for Hyperglycemia -- Adult, DI for Diabetic Foot Ulcer Additional Instructions: You have high sugars, a healing R toe fracture and an ulcer on your R 3rd toe. It is advised that you stay in the hospital for IV antibiotics, but you are choosing to leave against medical advice. Take the antibiotics as prescribed and take the whole dose even if you feel better. Keep the area clean and dry, and change the bandage twice a day. It is imperative that you follow up with Dr. Holland on Sunday for wound care. Return to the ED if you have worsening pain, fevers, chills, nausea, vomiting, or recurrent high sugars, or any changes in your symptoms.
[2016-12-12] MEDS ORDERED: SODIUM CHLORIDE 1,000 ML IV STA (14:00)
[2016-12-12 14:44] LABS: URINE APPEARANCE CLEAR; URINE BILIRUBIN NEGATIVE (NEGATIVE); URINE BLOOD 1+ (NEGATIVE); URINE COLOR STRAW; URINE GLUCOSE (UA) 3+ (NEGATIVE); URINE KETONE NEGATIVE (NEGATIVE); URINE LEUK ESTERASE NEGATIVE (NEGATIVE); URINE NITRITE NEGATIVE (NEGATIVE); URINE PROTEIN 1+ (NEGATIVE); URINE UROBILINOGEN NEGATIVE mg/dL (0.2-1.0)
[2016-12-12 14:46] LABS: BASOPHIL 0.8 % (0-2.0); EOSINOPHIL 1.7 % (0-4.5); MCH 29.8 pg (25.7-33.7); MCHC 33.4 g/dl (32.0-35.9); MEAN CELL VOLUME 89.3 fl (80-96); MEAN PLT VOLUME 6.8 fl (7.5-11.1); NEUTROPHILS 68.6 % (42.8-82.8); PLATELET COUNT 455 K/MM3 (134-434); RDW 15.9 % (11.9-15.9); WHITE BLOOD COUNT 14.3 K/mm3 (4.0-10.0)
--- NOTE | 2016-12-12 14:46 | PDOC ---
Attending Attestation - Resident Resident Name: Oumou Gale - ED Attending Attestation I have performed the following: I have examined & evaluated the patient, The case was reviewed & discussed with the resident, I agree w/resident's findings & plan, Exceptions are as noted - HPI HPI: 12/12/16 14:39 56-year-old male with past medical history of diabetes presents with hyperglycemia. Patient reports that he had missed his insulin dose of 60 units of Lantus this morning but took only half his thousand a grams dose of metformin. Stated that he was feeling lightheaded so he had checked in and saw his glucose in the 500s. Patient then came to the ED for further lotion. Denies other symptoms. 12/12/16 16:28 Pt also was recently admitted for 3rd Right toe infection. Seen by Dr. Mayo Holland. Finished his antibiotics. States that his right 3rd toe has been draining but no fevers. - Physicial Exam PE: 12/12/16 14:41 GENERAL: Awake, alert, and fully oriented, in no acute distress. HEAD: No signs of trauma EYES: PERRLA, EOMI, sclera anicteric, conjunctiva clear ENT: Auricles normal inspection, hearing grossly normal, nares patent, oropharynx clear without exudates. NECK: Normal ROM, supple, no lymphadenopathy, JVD, or masses LUNGS: Breath sounds equal, clear to auscultation bilaterally. No wheezes, and no crackles HEART: Regular rate and rhythm, normal S1 and S2, no murmurs, rubs or gallops ABDOMEN: Soft, nontender, normoactive bowel sounds. No guarding, no rebound. No masses EXTREMITIES: Normal range of motion, no edema. No clubbing or cyanosis. No cords, erythema, or tenderness RLE: 3rd right toe with a draining ulcer NEUROLOGICAL: Cranial nerves II through XII grossly intact. Normal speech, normal gait SKIN: Warm, Dry, normal turgor, no rashes or lesions noted. - Medical Decision Making 12/12/16 14:41 Vital Signs Temp Pulse Resp BP Pulse Ox 98.5 F 83 12 164/97 100 12/12/16 13:26 12/12/16 13:26 12/12/16 13:26 12/12/16 13:26 12/12/16 13:26 Will rule out DKA. If not DKA, likely hyperglycemia. Treat glucose. Give IVF, and reassess. I suspect that the hyperglycemia is being driven by his 3rd toe infection. Will r/o osteo. Appears at the very minimum to have an infected 3rd toe. Will touch base with DR. Mayo Holland. 12/12/16 18:27 Pt does not want to be admitted. After lengthy discussin, pt wants to AMA States he does not have enough time off from work. Case discussed with DR. Holland, patient will follow up as outpt Pt will AMA Microbiology reviewed. Has drug resistance. Will prescribed levaquin
[2016-12-12 14:56] LABS: ALBUMIN 3.1 g/dl (3.4-5.0); ALK PHOS 109 U/L (45-117); ANION GAP 7 (8-16); BILIRUBIN,TOTAL 0.3 mg/dL (0.2-1.0); CALCIUM 8.8 mg/dL (8.5-10.1); CO2 30 mmol/L (21-32); CPK 82 IU/L (39-308); CREATININE 1.3 mg/dL (0.7-1.3); SGOT/AST 11 U/L (15-37); SGPT/ALT 15 U/L (12-78)
[2016-12-12 14:57] LABS: TROPONIN I < 0.02 ng/ml (0.00-0.05); URINE RBC <1 /hpf (0-3); URINE WBC 2 /hpf (3-5)
[2016-12-12 15:03] LABS: GLUCOSE,RANDOM 532 mg/dL (74-106)
[2016-12-12] MEDS ORDERED: INSULIN REGULAR HUMAN 100 UNITS/ML *VIAL IVPUSH ONE (15:22)
[2016-12-12] MEDS ORDERED: BACITRACIN 0.9 GM PACKET ONE (19:05)
[2016-12-12 19:09] VITALS: BP 157/79; PULSE 74
--- NOTE | 2016-12-14 10:55 | EKG ---
Test Reason : Blood Pressure : / mmHG Vent. Rate : 076 BPM Atrial Rate : 076 BPM P-R Int : 136 ms QRS Dur : 090 ms QT Int : 420 ms P-R-T Axes : 065 048 066 degrees QTc Int : 472 ms NORMAL SINUS RHYTHM POSSIBLE LEFT ATRIAL ENLARGEMENT NONSPECIFIC T WAVE ABNORMALITY PROLONGED QT ABNORMAL ECG WHEN COMPARED WITH ECG OF 28-SEP-2016 16:08, NO SIGNIFICANT CHANGE WAS FOUND Confirmed by DAWIT GUALLPA, MARY ([id number]) on 12/14/2016 10:54:40 AM Referred By: Confirmed By:MARY PASTOR MD
== END 2016-12-12 19:09 | disposition left against medical advice (07) ==
LOC: JER 13:26
PROC: 3E0337Z Introduction of Electrolytic and Water Balance Substance into Peripheral Vein, Percutaneous Approach (ICD-10-PCS; principal; 2016-12-12)
PROC: 3E033VG Introduction of Insulin into Peripheral Vein, Percutaneous Approach (ICD-10-PCS; 2016-12-12)
DX: E11.621 Type 2 diabetes mellitus with foot ulcer (principal); S92.524B Nondisplaced fracture of middle phalanx of right lesser toe(s), initial encounter for open fracture; E11.52 Type 2 diabetes mellitus with diabetic peripheral angiopathy with gangrene; Z79.4 Long term (current) use of insulin
CPT/HCPCS: 36415; 73630-TC-RT; 80053; 81003; 81015; 82009; 84484; 85025; 85651; 86140; 87040; 87070; 87186; 87205; 93005; 93010; 99283-25

== ENCOUNTER 2017-03-14 09:11 | Emergency (ER) | payer BC ==
[2017-03-14 09:19] VITALS: TEMP 97.4; BMI 24.4
[2017-03-14 10:27] LABS: BASOPHIL 0.8 % (0-2.0); EOSINOPHIL 3.2 % (0-4.5); MCH 30.9 pg (25.7-33.7); MCHC 34.3 g/dl (32.0-35.9); MEAN CELL VOLUME 89.9 fl (80-96); MEAN PLT VOLUME 6.7 fl (7.5-11.1); PLATELET COUNT 314 K/MM3 (134-434); RDW 14.9 % (11.9-15.9); WHITE BLOOD COUNT 6.7 K/mm3 (4.0-10.0)
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
[2017-03-14 10:50] LABS: URINE APPEARANCE SLCLOUDY; URINE BILIRUBIN NEGATIVE (NEGATIVE); URINE BLOOD 1+ (NEGATIVE); URINE COLOR YELLOW; URINE GLUCOSE (UA) 3+ (NEGATIVE); URINE KETONE NEGATIVE (NEGATIVE); URINE NITRITE NEGATIVE (NEGATIVE); URINE UROBILINOGEN NEGATIVE mg/dL (0.2-1.0)
[2017-03-14 10:59] LABS: ALBUMIN 3.1 g/dl (3.4-5.0); ANION GAP 8 (8-16); BILIRUBIN,TOTAL 0.9 mg/dL (0.2-1.0); CALCIUM 8.6 mg/dL (8.5-10.1); CO2 28 mmol/L (21-32); CPK 116 IU/L (39-308); CREATININE 0.8 mg/dL (0.7-1.3); GLUCOSE,RANDOM 190 mg/dL (74-106); SGOT/AST 7 U/L (15-37); SGPT/ALT 17 U/L (12-78)
[2017-03-14 11:02] LABS: ALK PHOS 74 U/L (45-117); TOT PROT 7.3 g/dl (6.4-8.2); TROPONIN I < 0.02 ng/ml (0.00-0.05)
[2017-03-14 11:26] LABS: URINE PROTEIN 3+ (NEGATIVE)
[2017-03-14 11:49] LABS: URINE MUCUS RARE; URINE RBC 2 /hpf (0-3); URINE WBC 5 /hpf (3-5)
[2017-03-14 12:09] VITALS: BP 119/84; PULSE 70
[2017-03-14 12:23] LABS: GRANULAR CASTS 7 /lpf; URINE HYALINE CAST 13 /lpf
--- NOTE | 2017-03-14 12:37 | EKG ---
Test Reason : Blood Pressure : / mmHG Vent. Rate : 073 BPM Atrial Rate : 073 BPM P-R Int : 140 ms QRS Dur : 088 ms QT Int : 410 ms P-R-T Axes : 063 002 067 degrees QTc Int : 451 ms NORMAL SINUS RHYTHM NONSPECIFIC T WAVE ABNORMALITY ABNORMAL ECG WHEN COMPARED WITH ECG OF 12-DEC-2016 14:02, NO SIGNIFICANT CHANGE WAS FOUND Confirmed by PATRICIA ARROYO MD ([id number]) on 03/14/2017 12:37:01 PM Referred By: Confirmed By:PATRICIA ARROYO MD
[2017-03-14 14:28] LABS: URINE LEUK ESTERASE Negative (NEGATIVE)
== END 2017-03-14 12:21 | disposition home or self-care (01) ==
LOC: JER 09:11
DX: R10.32 Left lower quadrant pain (principal); E11.9 Type 2 diabetes mellitus without complications; Z79.84 Long term (current) use of oral hypoglycemic drugs; I10 Essential (primary) hypertension; Z87.891 Personal history of nicotine dependence
CPT/HCPCS: 36415; 80053; 81003; 81015; 82550; 84484; 85025; 93005; 93010; 99282-25

== ENCOUNTER 2017-08-22 17:16 | Emergency (ER) | payer BC ==
[2017-08-22 17:34] VITALS: BP 139/66; PULSE 84; BMI 26.4
--- NOTE | 2017-08-22 17:34 | PDOC ---
Rapid Medical Evaluation Time Seen by Provider: 08/22/17 17:29 Medical Evaluation: Allergies Allergy/AdvReac Type Severity Reaction Status Date / Time No Known Allergies Allergy Verified 04/27/17 07:25 08/22/17 17:29 I have performed a brief in-person evaluation of this patient. The patient presents with a chief complaint of: increased metformin "because kidneys were working overtime", also started a bunch of new meds 2 weeks ago - has had persistent diarrhea since, had chills last night, denies abd pain Pertinent physical exam findings: well appearing, VSS I have ordered the following: labs The patient will proceed to the ED for further evaluation. Discharge Disposition - Diagnosis Diarrhea - Referrals - Patient Instructions - Post Discharge Activity
[2017-08-22 18:35] LABS: BASO % 0.8 % (0-2.0); EOS % 2.3 % (0-4.5); HEMATOCRIT 37.9 % (35.4-49); HEMOGLOBIN 13.3 GM/dL (11.7-16.9); LYMPH % 39.7 % (8-40); MCHC 35.2 g/dl (32.0-35.9); MEAN CELL VOLUME 93.8 fl (80-96); MEAN PLT VOLUME 7.4 fl (7.5-11.1); MONO % 8.6 % (3.8-10.2); NEUT % 48.6 % (42.8-82.8); PLATELET COUNT 324 K/MM3 (134-434); RBC 4.04 M/mm3 (4.00-5.60); WHITE BLOOD COUNT 10.5 K/mm3 (4.0-10.0)
[2017-08-22 19:08] LABS: ALBUMIN 3.3 g/dl (3.4-5.0); ANION GAP 4 (8-16); BILIRUBIN,TOTAL 0.2 mg/dL (0.2-1.0); BLOOD UREA NITROGEN 17 mg/dL (7-18); CHLORIDE 108 mmol/L (98-107); CO2 30 mmol/L (21-32); CREATININE 0.8 mg/dL (0.7-1.3); GLUCOSE,RANDOM 115 mg/dL (74-106); POTASSIUM 4.2 mmol/L (3.5-5.1); SGOT/AST 16 U/L (15-37); SGPT/ALT 25 U/L (12-78); SODIUM 142 mmol/L (136-145); TOT PROT 6.9 g/dl (6.4-8.2)
[2017-08-22 19:09] LABS: ALK PHOS 69 U/L (45-117)
--- NOTE | 2017-08-22 19:46 | PDOC ---
*Physical Exam - Vital Signs Last Vital Signs Temp Pulse Resp BP Pulse Ox 84 16 139/66 100 08/22/17 17:31 08/22/17 17:31 08/22/17 17:31 08/22/17 17:31 ED Treatment Course - LABORATORY CBC & Chemistry Diagram: 08/22/17 18:21 08/22/17 18:21 - ADDITIONAL ORDERS Additional order review: Laboratory Results 08/22/17 18:21 Sodium 142 Potassium 4.2 Chloride 108 H Carbon Dioxide 30 Anion Gap 4 L BUN 17 Creatinine 0.8 Creat Clearance w eGFR > 60 Random Glucose 115 H D Calcium 9.0 Total Bilirubin 0.2 D AST 16 D ALT 25 D Alkaline Phosphatase 69 Total Protein 6.9 Albumin 3.3 L 08/22/17 18:21 RBC 4.04 MCV 93.8 MCHC 35.2 RDW 13.0 D MPV 7.4 L D Neutrophils % 48.6 Lymphocytes % 39.7 Monocytes % 8.6 Eosinophils % 2.3 Basophils % 0.8 *DC/Admit/Observation/Transfer Diagnosis at time of Disposition: Diarrhea - Referrals Referrals: ON STAFF,NOT [Primary Care Provider] - - Patient Instructions - Post Discharge Activity
--- NOTE | 2017-08-22 19:46 | PDOC ---
History of Present Illness - General Chief Complaint: Diarrhea Stated Complaint: diarrhea Time Seen by Provider: 08/22/17 17:29 History Source: Patient - History of Present Illness Initial Comments: 08/22/17 20:00 57 year old male c/o diarrhea x 3 days. patient started taking bactrim accidentally 3 days ago. patient does not have any current infection at this time. denies fever/ chills abdominal pain, chest pain, urinary symptoms, diaphoresis. Past History - Past Medical History Allergies/Adverse Reactions: Allergies Allergy/AdvReac Type Severity Reaction Status Date / Time No Known Allergies Allergy Verified 08/22/17 17:34 Home Medications: Ambulatory Orders metFORMIN HCL [Glucophage -] 1,000 mg PO BID 04/05/16 Insulin Glargine,Hum.rec.anlog [Lantus (10mL VIAL) -] 18 units SQ HS 12/12/16 L. Acidophilus/L.bulgaricus [Floranex Tablet] 1 each PO BID #14 tablet 08/22/17 Anemia: No Asthma: No Cancer: No Cardiac Disorders: No CVA: No COPD: No CHF: No DVT: No Dementia: No Diabetes: Yes Disorders: No HTN: Yes Liver Disease: No Seizures: No Thyroid Disease: No - Surgical History Appendectomy: No Cardiac Surgery: No Cholecystectomy: No Lung Surgery: No Neurologic Surgery: No Orthopedic Surgery: No - Suicide/Smoking/Psychosocial Hx Smoking Status: Yes Smoking History: Never smoked Have you smoked in the past 12 months: No Number of Cigarettes Smoked Daily: 0 If you are a former smoker, when did you quit?: 2011 Information on smoking cessation initiated: No Hx Alcohol Use: No Drug/Substance Use Hx: No Substance Use Type: None Hx Substance Use Treatment: No Review of Systems - Review of Systems Able to Perform ROS?: Yes Is the patient limited Ivorian proficient: No Constitutional: No: Symptoms Reported, See HPI, Chills, Diaphoresis, Fever, Loss of Appetite, Malaise, Night Sweats, Weakness, Weight Stable, Unintentional Wgt. Loss, Unexplained wgt Loss, Other HEENTM: No: Symptoms Reported, See HPI, Eye Pain, Blurred Vision, Tearing, Recent change in vision, Double Vision, Cataracts, Ear Pain, Ocular Prothesis, Ear Discharge, Nose Pain, Nose Congestion, Tinnitus, Nose Bleeding, Hearing Loss , Throat Pain, Throat Swelling, Mouth Pain, Dental Problems, Difficulty Swallowing, Mouth Swelling, Other Respiratory: No: Symptoms reported, See HPI, Cough, Orthopnea, Shortness of Breath, SOB with Exertion, SOB at Rest, Stridor, Wheezing, Productive cough, Hemoptysis, Other Cardiac (ROS): No: Symptoms Reported, See HPI, Chest Pain, Edema, Irregular Heart Rate, Lightheadedness, Palpitations, Syncope, Chest Tightness, Other ABD/GI: Yes: Diarrhea. No: Symptoms Reported, See HPI, Abdominal Distended, Abd. Pain w/ defecation, Blood Streaked Bowels, Constipated, Difficulty Swallowing, Nausea, Poor Appetite, Poor Fluid Intake, Rectal Bleeding, Vomiting , Indigestion, Abdominal cramping, Tarry Stools, Other *Physical Exam - Vital Signs Last Vital Signs Temp Pulse Resp BP Pulse Ox 84 16 139/66 100 08/22/17 17:31 08/22/17 17:31 08/22/17 17:31 08/22/17 17:31 ED Treatment Course - LABORATORY CBC & Chemistry Diagram: 08/22/17 18:21 08/22/17 18:21 - ADDITIONAL ORDERS Additional order review: Laboratory Results 08/22/17 18:21 Sodium 142 Potassium 4.2 Chloride 108 H Carbon Dioxide 30 Anion Gap 4 L BUN 17 Creatinine 0.8 Creat Clearance w eGFR > 60 Random Glucose 115 H D Calcium 9.0 Total Bilirubin 0.2 D AST 16 D ALT 25 D Alkaline Phosphatase 69 Total Protein 6.9 Albumin 3.3 L 08/22/17 18:21 RBC 4.04 MCV 93.8 MCHC 35.2 RDW 13.0 D MPV 7.4 L D Neutrophils % 48.6 Lymphocytes % 39.7 Monocytes % 8.6 Eosinophils % 2.3 Basophils % 0.8 Progress Note - Progress Note Progress Note: A: diarrhea P: will advise to stop BActrim. start probiotics. outpatient PMD *DC/Admit/Observation/Transfer Diagnosis at time of Disposition: Diarrhea Qualifiers: Diarrhea type: unspecified type Qualified Code(s): R19.7 - Diarrhea, unspecified - Discharge Dispostion Disposition: HOME - Prescriptions Prescriptions: L. Acidophilus/L.bulgaricus [Floranex Tablet] 1 each PO BID #14 tablet - Referrals Referrals: ON STAFF,NOT [Primary Care Provider] - - Patient Instructions Printed Discharge Instructions: Diarrhea Additional Instructions: follow up with your doctor . start probiotics as prescribed. if diarrhea continues follow up with your doctor if symptoms worsen return to the ER. - Post Discharge Activity Forms/Work/School Notes: Back to Work
== END 2017-08-22 20:30 | disposition home or self-care (01) ==
LOC: JER 17:16
DX: R19.7 Diarrhea, unspecified (principal); E11.9 Type 2 diabetes mellitus without complications; I10 Essential (primary) hypertension; Z87.891 Personal history of nicotine dependence
CPT/HCPCS: 36415; 80053; 85025; 99281-25

== ENCOUNTER 2018-06-27 10:11 | Emergency (ER) | payer BC, OTHER ==
[2018-06-27 10:22] VITALS: BP 179/91; PULSE 76; BMI 24.4
--- NOTE | 2018-06-27 10:57 | PDOC ---
*Physical Exam - Vital Signs Last Vital Signs Temp Pulse Resp BP Pulse Ox 76 17 179/91 H 97 06/27/18 10:15 06/27/18 10:15 06/27/18 10:15 06/27/18 10:15 Medical Decision Making - Medical Decision Making 06/27/18 10:56 The patient was seen and evaluated in conjunction with ZIGGY Tubbs under my direct supervision, ancillary studies were reviewed. I agree with the plan as outlined by ZIGGY Tubbs .
[2018-06-27] MEDS ORDERED: SODIUM CHLORIDE 1,000 ML IV STA (11:13)
--- NOTE | 2018-06-27 11:14 | PDOC ---
History of Present Illness - General Chief Complaint: Blood Sugar Problem Stated Complaint: BLOOD SUGAR PROBLEMS Time Seen by Provider: 06/27/18 10:44 History Source: Patient Exam Limitations: No Limitations Past History - Past Medical History Allergies/Adverse Reactions: Allergies Allergy/AdvReac Type Severity Reaction Status Date / Time No Known Allergies Allergy Verified 06/27/18 10:14 Home Medications: Ambulatory Orders metFORMIN HCL [Glucophage -] 1,000 mg PO BID 04/05/16 Insulin Glargine,Hum.rec.anlog [Lantus (10mL VIAL) -] 18 units SQ HS 12/12/16 Insulin Glargine,Hum.rec.anlog [Lantus Solostar PEN (NF)] 18 units SQ HS #2 pen 06/27/18 Anemia: No Asthma: No Cancer: No Cardiac Disorders: No CVA: No COPD: No CHF: No DVT: No Dementia: No Diabetes: Yes (IDDM) Disorders: No HTN: Yes Liver Disease: No Seizures: No Thyroid Disease: No - Surgical History Appendectomy: No Cardiac Surgery: No Cholecystectomy: No Lung Surgery: No Neurologic Surgery: No Orthopedic Surgery: No - Suicide/Smoking/Psychosocial Hx Smoking Status: Yes Smoking History: Former smoker Have you smoked in the past 12 months: No Number of Cigarettes Smoked Daily: 0 If you are a former smoker, when did you quit?: 7YRS Information on smoking cessation initiated: No Hx Alcohol Use: No Drug/Substance Use Hx: No Substance Use Type: None Hx Substance Use Treatment: No *Physical Exam - Vital Signs Last Vital Signs Temp Pulse Resp BP Pulse Ox 76 17 179/91 H 97 06/27/18 10:15 06/27/18 10:15 06/27/18 10:15 06/27/18 10:15 - Physical Exam General Appearance: No: Apparent Distress Respiratory/Chest: positive: Lungs Clear, Normal Breath Sounds. negative: Respiratory Distress Cardiovascular: positive: Regular Rhythm, Regular Rate, S1, S2. negative: Murmur Gastrointestinal/Abdominal: positive: Normal Bowel Sounds, Soft. negative: Tender, Distended, Guarding, Rebound Integumentary: positive: Normal Color Neurologic: positive: Fully Oriented, Alert, Normal Mood/Affect Moderate Sedation - Procedure Monitoring Vital Signs: Procedure Monitoring Vital Signs Temperature Pulse Rate 76 06/27/18 10:15 Respiratory Rate 17 06/27/18 10:15 Blood Pressure 179/91 H 06/27/18 10:15 O2 Sat by Pulse Oximetry (%) 97 06/27/18 10:15 ED Treatment Course - LABORATORY CBC & Chemistry Diagram: 06/27/18 11:31 06/27/18 11:31 - ADDITIONAL ORDERS Additional order review: Laboratory Results 06/27/18 11:01 POC Glucometer 336 06/27/18 11:01 POC Glucometer 336 Medical Decision Making - Medical Decision Making 58 y/o M with hx of DM (on Metformin and Lantus), HTN, HLD presents with feeling "shaky" while at work today. Patient ran out of his insulin 2 days ago and states feels his sugar may be high. Has not checked his sugar today. Mentions he currently has no PCP; last time he saw a PCP was 2 months ago, but due to work schedule, it has been hard for him to make appointment with someone else. Denies fever, sob, cp, abd pain, n/v/d FS here 336 Likely hyperglycemia from not taking insulin; less suspicious for DKA Plan: Labs, IVF 06/27/18 11:14 Sugar elevated No anion gap noted Patient given 1L of NS with improvement of sugar to 299 Patient already took his Metformin in AM and is due for next dose in 3 hours Is feeling much better Will send rx for Lantus (takes 18 units qhs) Also spoke to garbage man- patient setup appointment with Dr. Nelson next week 06/27/18 12:54 *DC/Admit/Observation/Transfer Diagnosis at time of Disposition: Hyperglycemia due to type 2 diabetes mellitus Qualifiers: Diabetes mellitus mcc insulin use: unspecified mcc insulin use status Qualified Code(s): E11.65 - Type 2 diabetes mellitus with hyperglycemia - Discharge Dispostion Disposition: HOME Condition at time of disposition: Stable Decision to Admit order: No - Prescriptions Prescriptions: Insulin Glargine,Hum.rec.anlog [Lantus Solostar PEN (NF)] 18 units SQ HS #2 pen - Referrals Referrals: Kelsea Nelson MD [[facility]visional Medical Staff] - 07/05/18 10:00 am - Patient Instructions Printed Discharge Instructions: DI for Hyperglycemia -- Adult, Type 2 Diabetes Additional Instructions: Thank you for choosing [facility]. It was a pleasure taking care of you. Please be sure to take your diabetic meds as prescribed Please follow-up with the PCP you were referred to next week Drink plenty of water to stay hydrated Return to the Emergency Department if your symptoms worsen or persist or have other concerning symptoms. - Post Discharge Activity
[2018-06-27 11:40] LABS: VENOUS PH 7.33 (7.32-7.42); VENOUS PO2 24.3 mmHg (28-48)
[2018-06-27 11:41] LABS: BASO % 0.8 % (0-2.0); EOS % 1.7 % (0-4.5); HEMATOCRIT 39.3 % (35.4-49); LYMPH % 26.9 % (8-40); MCH 32.8 pg (25.7-33.7); MCHC 35.7 g/dl (32.0-35.9); MEAN CELL VOLUME 91.9 fl (80-96); MEAN PLT VOLUME 7.5 fl (7.5-11.1); MONO % 7.2 % (3.8-10.2); NEUT % 63.4 % (42.8-82.8); PLATELET COUNT 336 K/MM3 (134-434); RBC 4.27 M/mm3 (4.00-5.60); RDW 12.7 % (11.9-15.9); WHITE BLOOD COUNT 11.2 K/mm3 (4.0-10.0)
[2018-06-27 12:13] LABS: ANION GAP 6 MMOL/L (8-16); BLOOD UREA NITROGEN 17 mg/dL (7-18); CALCIUM 8.8 mg/dL (8.5-10.1); CHLORIDE 101 mmol/L (98-107); CO2 29 mmol/L (21-32); POTASSIUM 4.4 mmol/L (3.5-5.1); SODIUM 135 mmol/L (136-145)
[2018-06-27 12:14] LABS: GLUCOSE,RANDOM 354 mg/dL (74-106)
== END 2018-06-27 13:10 | disposition home or self-care (01) ==
LOC: JER 10:11
PROC: 3E0337Z Introduction of Electrolytic and Water Balance Substance into Peripheral Vein, Percutaneous Approach (ICD-10-PCS; principal; 2018-06-27)
DX: E11.65 Type 2 diabetes mellitus with hyperglycemia (principal); Z79.4 Long term (current) use of insulin; Z79.84 Long term (current) use of oral hypoglycemic drugs; I10 Essential (primary) hypertension; E78.00 Pure hypercholesterolemia, unspecified
CPT/HCPCS: 36415; 80048; 82009; 82803; 82962; 85025; 99283-25; J7030